=== PATIENT | male | born 1990 | race Caucasian/White ===

== ENCOUNTER → 2017-09-13 | Outpatient (CLI) | payer MEDICARE, OTHER ==
--- NOTE | 2017-09-13 16:01 | US ---
EXAMINATION TYPE: US liver DATE OF EXAM: 09/13/2017 COMPARISON: NONE CLINICAL HISTORY: 26-year-old male R94.5 Elevated Liver Enzymes. TECHNIQUE: Multiple sonographic images of the right upper quadrant are obtained. FINDINGS: [employer] NOTES: Difficult exam due to overlying bowel gas and patient body habitus Liver Length: 18.3 cm Gallbladder Wall: 0.2 cm CBD: 4.2 mm Right Kidney: 10.8 x 4.7 x 4.8 cm Pancreas: Only portions of the pancreatic neck and body are seen. Remainder suboptimally visualized d ue to shadowing from bowel gas. Liver: Mildly enlarged, coarsened appearance, echogenic, and attenuating. This secondarily limits as sessment for focal lesion. Gallbladder: wnl Evidence for sonographic Jiang's sign: No CBD: wnl as visualized, distal portion obscured by bowel gas Right Kidney: No hydronephrosis. IMPRESSION: Mild hepatomegaly and either moderate to marked hepatic steatosis or other nonspecific hepatocellular disease. Correlate with LFTs, lipid profile, and patient risk factors.
== END | disposition home or self-care (01) ==
LOC: RADUSWWP 15:09
PROVIDERS: ATTEND Family Medicine
DX: R16.0 Hepatomegaly, not elsewhere classified (principal)
CPT/HCPCS: 76705

== ENCOUNTER 2018-09-03 19:06 | Inpatient (IN) | payer MEDICARE, MEDICAID ==
--- NOTE | 2018-09-03 19:31 | ED ---
General Adult HPI - General Chief complaint: Psychiatric Symptoms Stated complaint: Suicidal Time Seen by Provider: 09/03/18 19:10 Source: patient, EMS, RN notes reviewed Mode of arrival: EMS Limitations: no limitations - History of Present Illness Initial comments: This is a 27-year-old male who presents emergency department stating that he is suicidal. Patient states he has been suicidal in the past in the past he has tried to cut his wrist. Patient states he took a couple pills today does know what they were or whose they were and then a little bit later he said he took a couple more than a couple. Patient is very unclear about what pills he took and how many he took. Patient did not tell nursing or the ambulance he took any pills at all. Patient is developmentally delayed. Patient has no physical complaints today. Patient denies any headache patient denies numbness weakness. Patient denies chest pain difficult breathing or shortness of breath. Patient denies any recent fever chills or cough per patient denies abdominal pain patient denies nausea vomiting diarrhea. - Related Data Allergies Allergy/AdvReac Type Severity Reaction Status Date / Time No Known Allergies Allergy Unverified 09/03/18 19:44 Review of Systems ROS Statement: Those systems with pertinent positive or pertinent negative responses have been documented in the HPI. ROS Other: All systems not noted in ROS Statement are negative. Past Medical History Past Medical History: No Reported History History of Any Multi-Drug Resistant Organisms: None Reported Past Surgical History: No Surgical Hx Reported Past Psychological History: Anxiety, Bipolar, Depression Smoking Status: Never smoker Past Alcohol Use History: None Reported Past Drug Use History: None Reported General Exam - General Exam Comments Initial Comments: GENERAL: Patient is well-developed and well-nourished. Patient is nontoxic and well- hydrated and is in no acute distress ENT: Neck is soft and supple. No significant lymphadenopathy is noted. Oropharynx is clear. Moist mucous membranes. Neck has full range of motion without eliciting any pain. EYES: The sclera were anicteric and conjunctiva were pink and moist. Extraocular movements were intact and pupils were equal round and reactive to light. Eyelids were unremarkable. PULMONARY: Unlabored respirations. Good breath sounds bilaterally. No audible rales rhonchi or wheezing was noted. CARDIOVASCULAR: There is a regular rate and rhythm without any murmurs gallops or rubs. ABDOMEN: Soft and nontender with normal bowel sounds. SKIN: Skin is clear with no lesions or rashes and otherwise unremarkable. NEUROLOGIC: Patient is alert and oriented 2. Cranial nerves II through XII are grossly intact. Motor and sensory are also intact. Normal speech, volume and content. Symmetrical smile. MUSCULOSKELETAL: Normal extremities with adequate strength and full range of motion. No lower extremity swelling or edema. No calf tenderness. LYMPHATICS: No significant lymphadenopathy is noted PSYCHIATRIC: Patient states he suicidal but also indicates that he would like not to live with his parents anymore and that may be the underlying problem. Limitations: no limitations Course Vital Signs 09/03/18 19:15 Temperature 98.4 F Pulse Rate 110 H Respiratory 18 Rate Blood Pressure 143/94 O2 Sat by Pulse 97 Oximetry Medical Decision Making - Medical Decision Making Dr. Solis will be taking over care of this patient at 9 PM - Lab Data Lab Results 09/03/18 Range/Units 19:57 Salicylates <1.0 mg/dL Acetaminophen <10.0 ug/mL Disposition Referrals: Tj Barrientos MD [Primary Care Provider] - 1-2 days
[2018-09-03 20:47] LABS: Acetaminophen <10.0 ug/mL; Salicylate <1.0 mg/dL
[2018-09-03 21:14] LABS: Amphetamine Screen,Urine Not Detected (NotDetected); Barbiturate Screen,Urine Not Detected (NotDetected); Benzodiazepines Screen,Urine Detected (NotDetected); Cocaine Screen,Urine Not Detected (NotDetected); Methadone Screen, Urine Not Detected (NotDetected); Opiate Screen,Urine Not Detected (NotDetected); Oxycodone Screen, Urine Not Detected (NotDetected); Phencyclidine Screen,Urine Not Detected (NotDetected); Tricyclic Antidepressant,Urine Detected (NotDetected); Urn Cannabinoid Scrn Not Detected (NotDetected)
[2018-09-04] MEDS ORDERED: ZIPRASIDONE 20 MG VIAL IM PRN (00:26)
[2018-09-04] MEDS ORDERED: ACETAMINOPHEN TAB 325 MG TAB PO PRN (00:26)
[2018-09-04] MEDS ORDERED: MAG HYDROX/AL HYDROX/SIMETH 30 ML CUP PO PRN (00:26)
[2018-09-04] MEDS ORDERED: MAGNESIUM HYDROXIDE 2,400 MG/10 ML CUP PO PRN (00:26)
[2018-09-04] MEDS ORDERED: LORazepam 2 MG/ML INJ IM PRN (00:30)
[2018-09-04] MEDS ORDERED: DIVALPROEX ER 500 MG TAB.ER.24H PO SCH (09:00)
[2018-09-04] MEDS ORDERED: FLUoxetine HCL 20 MG CAP PO SCH (09:00)
[2018-09-04] MEDS: ATORVASTATIN 20 MG TAB PO SCH (09:14)
[2018-09-04] MEDS: metFORMIN 500 MG TAB PO SCH (09:15)
[2018-09-04] MEDS: LISINOPRIL 10 MG TAB PO SCH (09:15)
[2018-09-04 11:48] LABS: Basophils % (A) 0 %; Eosinophils % (A) 0 %; HCT 49.7 % (39.0-53.0); Lymphocytes # (A) 2.3 k/uL (1.0-4.8); Lymphocytes % (A) 32 %; MCH 28.5 pg (25.0-35.0); MCHC 32.2 g/dL (31.0-37.0); MCV 88.5 fL (80.0-100.0); Mean Platelet Volume 6.3; Monocytes # (A) 0.7 k/uL (0-1.0); Monocytes % (A) 10 %; Neutrophils % (A) 55 %; Platelet Count 245 k/uL (150-450); RBC 5.61 m/uL (4.30-5.90); RDW 13.5 % (11.5-15.5); WBC 7.2 k/uL (3.8-10.6)
[2018-09-04 11:55] LABS: ALT 74 U/L (21-72); AST 58 U/L (17-59); Albumin 4.9 g/dL (3.5-5.0); Alkaline Phosphatase 48 U/L (38-126); Anion Gap 13 mmol/L; Bilirubin, Delta 0.3 mg/dL (0.0-0.2); Bilirubin,Unconjugated 0.9 mg/dL (0.0-1.1); Blood Urea Nitrogen 22 mg/dL (9-20); Calcium 10.5 mg/dL (8.4-10.2); Carbon Dioxide 23 mmol/L (22-30); Chloride 104 mmol/L (98-107); Cholesterol 132 mg/dL (<200); Glucose 95 mg/dL (74-99); HDL Cholesterol 34 mg/dL (40-60); LDL Cholesterol,Calculated 69 mg/dL (0-99); Potassium 4.7 mmol/L (3.5-5.1); Sodium 140 mmol/L (137-145); Total Bilirubin 1.2 mg/dL (0.2-1.3); Total Protein 8.6 g/dL (6.3-8.2); Triglycerides 144 mg/dL (<150)
--- NOTE | 2018-09-04 12:19 | P.HP ---
Psychiatric H&P - . H&P Date: 09/04/18 History & Physical: Allergies Allergy/AdvReac Type Severity Reaction Status Date / Time No Known Allergies Allergy Verified 09/04/18 09:11 Vital Signs Temp 97.0 F L 09/04/18 00:44 Pulse 116 H 09/04/18 10:43 Resp 20 09/04/18 10:43 BP 115/91 09/04/18 10:43 Pulse Ox 97 09/04/18 00:44 Intake & Output 09/03/18 09/04/18 09/04/18 18:59 06:59 18:59 Weight 130.181 kg Laboratory Last Values Salicylates <1.0 mg/dL 09/03/18 19:57 Urine Opiates Screen Not Detected (NotDetected) 09/03/18 20:30 Ur Oxycodone Screen Not Detected (NotDetected) 09/03/18 20:30 Urine Methadone Screen Not Detected (NotDetected) 09/03/18 20:30 Ur Propoxyphene Screen Not Detected (NotDetected) 09/03/18 20:30 Acetaminophen <10.0 ug/mL 09/03/18 19:57 Ur Barbiturates Screen Not Detected (NotDetected) 09/03/18 20:30 U Tricyclic Antidepress Detected (NotDetected) H 09/03/18 20:30 Ur Phencyclidine Scrn Not Detected (NotDetected) 09/03/18 20:30 Ur Amphetamines Screen Not Detected (NotDetected) 09/03/18 20:30 U Methamphetamines Scrn Not Detected (NotDetected) 09/03/18 20:30 U Benzodiazepines Scrn Detected (NotDetected) H 09/03/18 20:30 Urine Cocaine Screen Not Detected (NotDetected) 09/03/18 20:30 U Marijuana (THC) Screen Not Detected (NotDetected) 09/03/18 20:30 Assessment and Plan Assessment: This is a 27-year-old male who presents emergency department stating that he is suicidal. Patient states he has been suicidal in the past in the past he has tried to cut his wrist. Patient states he took a couple pills today does know what they were or whose they were and then a little bit later he said he took a couple more than a couple. Patient is very unclear about what pills he took and how many he took. Patient did not tell nursing or the ambulance he took any pills at all. Patient is developmentally delayed. Patient has no physical complaints today. Patient denies any headache patient denies numbness weakness. Patient denies chest pain difficult breathing or shortness of breath. Patient denies any recent fever chills or cough per patient denies abdominal pain patient denies nausea vomiting diarrhea. I'll feel safe from my father. I would harm myself again. I need more help. Social history: Lives with mom and dad and his sister in [facility]. Currently he is on so security disability and not working. Outpatient mental health at [facility] and has a casework manager David Hi. Dr. Taylor is his psychiatrist. - Related Data Allergies Allergy/AdvReac Type Severity Reaction Status Date / Time No Known Allergies Allergy Unverified 09/03/18 19:44 Past Medical History Past Medical History: No Reported History History of Any Multi-Drug Resistant Organisms: None Reported Past Surgical History: No Surgical Hx Reported Past Psychological History: Anxiety, Bipolar, Depression Smoking Status: Never smoker Past Alcohol Use History: None Reported Past Drug Use History: None Reported His outpatient medication: Seroquel 100 mg at bedtime, Prozac 40 mg a day and Depakote 250 twice a day Musculoskeletal Examination - Abnormal/Involuntary Movements: [none Strength: [greater than antigravity (greater than/equal to 3/5) in all extremities,:] Muscle Tone: [ dystonia, ] Gait: [grossly normal Station: [grossly normal Mental Status Examination - General Appearance: [casual, bizarre, appears stated age Speech/Language: [ slow, slurred, mumbling, hesitant, halting, monotone, soft] Attitude/Behavior: [ guarded, irritable, withdrawn, indifferent] Mood: [depressed, anxious, fearful, hopelessness] Affect: [ flat, incongruent, blunted constricted] Orientation: [time, person, place situation] Thought Content: [wnl Risk Factors: [He is suicidal (ideations, plan), and/or Homicidal (ideations, plan), other] Perception: [wnl, hallucinations (auditory, visual, he hears and sees his grandmother Thought Processes: [ concrete, circumstantial, tangential] Concentration/Attention Span: [impaired] [Per observation and interview with the patient] Recent Memory: [ impaired] [0 out of 3 in 3 minutes] Remote Memory: [impaired] [past events, as related history] Intelligence: [below average [based on history, based on vocabulary, syntax, grammar, and content] Judgement: [poor] [per patient's behavior/history of present illness] Insight: [poor] [understanding severity of illness/history of present illness] Admitting Diagnosis: [Bipolar affective disorder with psychosis and suicidal ideation] Patient Strengths - Able to vocalize needs: [x] Motivation, determination, readiness for change: x] Resources - social, interpersonal, monetary: [x] Patient Limitations: [medication, non-compliance, pathological/unsupported environment, Initial Plan of Care: [He has a formal voluntary on the psychiatric unit and will be placed on 15 minute checks during his stay on the unit. He'll be evaluated by medicine, psychiatry, social work, nursing, and recreational therapy. He'll be integrated into a holguin and milieu therapeutic environment whereby he'll have to participate in groups and up for all 3 meals and no sleeping during the daytime. He will be evaluated and a multi specialty team meeting every day. Placement will be a major factor in this hospitalization.] Estimated Length of Stay: [5-7 days] Initial Discharge Plan: [home, [facility], referred to therapist Prognosis: [ guarded] Justification for Inpatient Hospitalization - [Hallucinations, delusions, agitation, anxiety, depression resulting in significant loss of functioning.] [Dangerous to self, others, or property with need for controlled environment.] [Emotional or behavioral conditions and complications requiring 24 hour medical and nursing care.] [Need for special drug therapy, or other therapeutic program requiring continuous hospitalization.] [Failure of social or occupational functioning.] [Inability to meet basic life and health needs.] Plan: He will be taken off his Prozac, Seroquel and since he has a low Depakote level will be placed on thousand milligrams extended release with the addition of Invega at bedtime 3 mg and Mirapex 0.5 mg for his restless leg and sleep disturbance. Discharge planning should begin immediately and contact with the family for further clarification. This is his first hospitalization at [facility] Time with Patient: Greater than 30
[2018-09-04 20:55] LABS: Hemoglobin A1C 6.3 % (4.0-6.0)
[2018-09-04] MEDS ORDERED: PRAMIPEXOLE 0.5 MG TAB PO SCH (21:00)
[2018-09-04] MEDS ORDERED: QUEtiapine 100 MG TAB PO SCH (21:00)
[2018-09-04] MEDS ORDERED: PALIPERIDONE 3 MG TAB.ER.24 PO SCH (21:00)
[2018-09-04] MEDS: DIVALPROEX ER 500 MG TAB.ER.24H PO SCH (21:13)
[2018-09-04] MEDS ORDERED: WATER FOR INJECTION, STERILE 10 ML IV ONE (22:46)
[2018-09-04] MEDS ORDERED: ZIPRASIDONE 20 MG VIAL IM ONE (22:46)
[2018-09-05] MEDS: metFORMIN 500 MG TAB PO SCH (08:03)
[2018-09-05] MEDS: ATORVASTATIN 20 MG TAB PO SCH (08:03)
[2018-09-05] MEDS: LISINOPRIL 10 MG TAB PO SCH (08:03)
--- NOTE | 2018-09-05 09:46 | CONS ---
CONSULTATION CHIEF COMPLAINT: A 27-year-old white male with psychiatric symptoms, suicidal. States he is having difficulties with his family. Fighting with his parents and wants a different place to live. He is having no chest pain, shortness of breath. He does not feel happy at home and wants a new place to live due to fighting with his family. ALLERGIES: No known drug allergies. PAST MEDICAL HISTORY: He has history of anxiety, bipolar, depression, diabetes, hypertension, obesity. REVIEW OF SYSTEMS: Fourteen point review of systems negative except for mentioned in HPI. PHYSICAL EXAMINATION: CARDIOVASCULAR: S1, S2. LUNGS: Clear. GI soft. Hematology negative Homans. Psych fair mood and affect. NEUROLOGIC: Alert and oriented x3. Temp 98.4, pulse is 110. Respiratory 16 to 18, blood pressure 143/94, O2 97. PSYCH: Fair mood and affect. LABORATORY DATA: Labs as mentioned above. Please see further orders. He needs a social situation fix with foot worker to find a new place to live where he is not unhappy and from medical standpoint we can treat his psychiatric illness. MMODL / IJN: [id number] /
--- NOTE | 2018-09-05 12:09 | P.PN ---
Subjective Progress Note Date: 09/05/18 Principal diagnosis: Bipolar affective disorder with psychosis and suicidal ideation] I am sad today. I had a disagreement with another client and we apologized. Currently not SI/HI Objective - Vital Signs Vital signs: Vital Signs Temp 97.0 F L 09/04/18 00:44 Pulse 116 H 09/04/18 10:43 Resp 18 09/05/18 08:11 BP 120/75 09/05/18 08:11 Pulse Ox 97 09/04/18 00:44 - Labs CBC & Chem 7: 09/04/18 11:15 09/04/18 11:15 Labs: Abnormal Lab Results - Last 24 Hours (Table) 09/04/18 09/04/18 Range/Units 11:15 11:15 BUN 22 H (9-20) mg/dL Hemoglobin A1c 6.3 H (4.0-6.0) % Calcium 10.5 H (8.4-10.2) mg/dL Delta Bilirubin 0.3 H (0.0-0.2) mg/dL ALT 74 H (21-72) U/L Total Protein 8.6 H (6.3-8.2) g/dL HDL Cholesterol 34 L (40-60) mg/dL Assessment and Plan Assessment: This is a 27-year-old male who presents emergency department stating that he is suicidal. Patient states he has been suicidal in the past in the past he has tried to cut his wrist. Patient states he took a couple pills today does know what they were or whose they were and then a little bit later he said he took a couple more than a couple. Patient is very unclear about what pills he took and how many he took. Patient did not tell nursing or the ambulance he took any pills at all. Patient is developmentally delayed. Patient has no physical complaints today. Patient denies any headache patient denies numbness weakness. Patient denies chest pain difficult breathing or shortness of breath. Patient denies any recent fever chills or cough per patient denies abdominal pain patient denies nausea vomiting diarrhea. I'll feel safe from my father. I would harm myself again. I need more help. Social history: Lives with mom and dad and his sister in [facility]. Currently he is on social security disability and not working. Outpatient mental health at [facility] and has a case technician David Hi. Dr. Taylor is his psychiatrist. - Related Data Allergies Allergy/AdvReac Type Severity Reaction Status Date / Time No Known Allergies Allergy Unverified 09/03/18 19:44 Past Medical History Past Medical History: No Reported History History of Any Multi-Drug Resistant Organisms: None Reported Past Surgical History: No Surgical Hx Reported Past Psychological History: Anxiety, Bipolar, Depression Smoking Status: Never smoker Past Alcohol Use History: None Reported Past Drug Use History: None Reported His outpatient medication: Seroquel 100 mg at bedtime, Prozac 40 mg a day and Depakote 250 twice a day Musculoskeletal Examination - Abnormal/Involuntary Movements: [none Strength: [greater than antigravity (greater than/equal to 3/5) in all extremities,:] Muscle Tone: [ dystonia, ] Gait: [grossly normal Station: [grossly normal Mental Status Examination - General Appearance: [casual, bizarre, appears stated age Speech/Language: [ slow, slurred, mumbling, hesitant, halting, monotone, soft] Attitude/Behavior: [ guarded, irritable, withdrawn, indifferent] Mood: [depressed, anxious, fearful, hopelessness] Affect: [ flat, incongruent, blunted constricted] Orientation: [time, person, place situation] Thought Content: [wnl Risk Factors: [He is suicidal (ideations, plan), and/or Homicidal (ideations, plan), other] Perception: [wnl, hallucinations (auditory, visual, he hears and sees his grandmother Thought Processes: [ concrete, circumstantial, tangential] Concentration/Attention Span: [impaired] [Per observation and interview with the patient] Recent Memory: [ impaired] [0 out of 3 in 3 minutes] Remote Memory: [impaired] [past events, as related history] Intelligence: [below average [based on history, based on vocabulary, syntax, grammar, and content] Judgement: [poor] [per patient's behavior/history of present illness] Insight: [poor] [understanding severity of illness/history of present illness] Admitting Diagnosis: [Bipolar affective disorder with psychosis and suicidal ideation] Patient Strengths - Able to vocalize needs: [x] Motivation, determination, readiness for change: x] Resources - social, interpersonal, monetary: [x] Patient Limitations: [medication, non-compliance, pathological/unsupported environment, Initial Plan of Care: [He has a formal voluntary on the psychiatric unit and will be placed on 15 minute checks during his stay on the unit. He'll be evaluated by medicine, psychiatry, social work, nursing, and recreational therapy. He'll be integrated into a holguin and milieu therapeutic environment whereby he'll have to participate in groups and up for all 3 meals and no sleeping during the daytime. He will be evaluated and a multi specialty team meeting every day. Placement will be a major factor in this hospitalization.] Estimated Length of Stay: [3 days] Initial Discharge Plan: [[place], referred to therapist Prognosis: [ guarded] Justification for Inpatient Hospitalization - [Hallucinations, delusions, agitation, anxiety, depression resulting in significant loss of functioning.] [Dangerous to self, others, or property with need for controlled environment.] [Emotional or behavioral conditions and complications requiring 24 hour medical and nursing care.] [Need for special drug therapy, or other therapeutic program requiring continuous hospitalization.] [Failure of social or occupational functioning.] [Inability to meet basic life and health needs.] (1) Bipolar affective disorder, current episode manic with psychotic symptoms Current Visit: Yes Status: Acute Priority: High Code(s): F31.2 - BIPOLAR DISORD, CRNT EPISODE MANIC SEVERE W PSYCH FEATURES SNOMED Code(s): 293557629 Plan: He will be taken off his Prozac, Seroquel and since he has a low Depakote level will be placed on thousand milligrams extended release with the addition of Invega at bedtime 6 mg and Mirapex 1 mg for his restless leg and sleep disturbance. Depakote level to be drawn today. Discharge planning should begin immediately and contact with the family for further clarification. This is his first hospitalization at [facility] Time with Patient: Less than 30
[2018-09-05] MEDS: LORazepam 1 MG TAB PO PRN ×2 (12:46→20:10)
[2018-09-05] MEDS ORDERED: PALIPERIDONE 3 MG TAB.ER.24 PO STA (13:32)
[2018-09-05] MEDS: PALIPERIDONE 6 MG TAB.ER.24 PO SCH (20:08)
[2018-09-05] MEDS: DIVALPROEX ER 500 MG TAB.ER.24H PO SCH (20:08)
[2018-09-05] MEDS ORDERED: HALOPERIDOL LACTATE 5 MG/ML 1 ML VIAL IM ONE (20:16)
[2018-09-05] MEDS ORDERED: diphenhydrAMINE 50 MG/ML 1 ML VIAL IM ONE (20:20)
[2018-09-05] MEDS ORDERED: PRAMIPEXOLE 1 MG TAB PO SCH (21:00)
[2018-09-06] MEDS: ATORVASTATIN 20 MG TAB PO SCH (09:07)
[2018-09-06] MEDS: LISINOPRIL 10 MG TAB PO SCH (09:07)
[2018-09-06] MEDS: metFORMIN 500 MG TAB PO SCH (09:07)
--- NOTE | 2018-09-06 11:40 | P.PN ---
Subjective Progress Note Date: 09/06/18 Principal diagnosis: Bipolar affective disorder with psychosis and suicidal ideation] I am sad today. I had a disagreement with another client and we apologized. Currently not SI/HI Objective - Vital Signs Vital signs: Vital Signs Temp 97.0 F L 09/04/18 00:44 Pulse 112 H 09/06/18 09:08 Resp 18 09/05/18 08:11 BP 140/89 09/06/18 09:08 Pulse Ox 97 09/04/18 00:44 - Labs CBC & Chem 7: 09/04/18 11:15 09/04/18 11:15 Assessment and Plan Assessment: This is a 27-year-old male who presents emergency department stating that he is suicidal. Patient states he has been suicidal in the past in the past he has tried to cut his wrist. Patient states he took a couple pills today does know what they were or whose they were and then a little bit later he said he took a couple more than a couple. Patient is very unclear about what pills he took and how many he took. Patient did not tell nursing or the ambulance he took any pills at all. Patient is developmentally delayed. Patient has no physical complaints today. Patient denies any headache patient denies numbness weakness. Patient denies chest pain difficult breathing or shortness of breath. Patient denies any recent fever chills or cough per patient denies abdominal pain patient denies nausea vomiting diarrhea. I'll feel safe from my father. I would harm myself again. I need more help. Social history: Lives with mom and dad and his sister in [facility]. Currently he is on social security disability and not working. Outpatient mental health at [facility] and has a case mgr David Hi. Dr. Taylor is his psychiatrist. - Related Data Allergies Allergy/AdvReac Type Severity Reaction Status Date / Time No Known Allergies Allergy Unverified 09/03/18 19:44 Past Medical History Past Medical History: No Reported History History of Any Multi-Drug Resistant Organisms: None Reported Past Surgical History: No Surgical Hx Reported Past Psychological History: Anxiety, Bipolar, Depression Smoking Status: Never smoker Past Alcohol Use History: None Reported Past Drug Use History: None Reported His outpatient medication: Seroquel 100 mg at bedtime, Prozac 40 mg a day and Depakote 250 twice a day Musculoskeletal Examination - Abnormal/Involuntary Movements: [none Strength: [greater than antigravity (greater than/equal to 3/5) in all extremities,:] Muscle Tone: [ dystonia, ] Gait: [grossly normal Station: [grossly normal Mental Status Examination - General Appearance: [casual, bizarre, appears stated age Speech/Language: [ slow, slurred, mumbling, hesitant, halting, monotone, soft] Attitude/Behavior: [ guarded, irritable, withdrawn, indifferent] Mood: [depressed, anxious, fearful, hopelessness] Affect: [ flat, incongruent, blunted constricted] Orientation: [time, person, place situation] Thought Content: [wnl Risk Factors: [He is suicidal (ideations, plan), and/or Homicidal (ideations, plan), other] Perception: [wnl, hallucinations (auditory, visual, he hears and sees his grandmother Thought Processes: [ concrete, circumstantial, tangential] Concentration/Attention Span: [impaired] [Per observation and interview with the patient] Recent Memory: [ impaired] [0 out of 3 in 3 minutes] Remote Memory: [impaired] [past events, as related history] Intelligence: [below average [based on history, based on vocabulary, syntax, grammar, and content] Judgement: [poor] [per patient's behavior/history of present illness] Insight: [poor] [understanding severity of illness/history of present illness] Admitting Diagnosis: [Bipolar affective disorder with psychosis and suicidal ideation] Patient Strengths - Able to vocalize needs: [x] Motivation, determination, readiness for change: x] Resources - social, interpersonal, monetary: [x] Patient Limitations: [medication, non-compliance, pathological/unsupported environment, Initial Plan of Care: [He has a formal voluntary on the psychiatric unit and will be placed on 15 minute checks during his stay on the unit. He'll be evaluated by medicine, psychiatry, social work, nursing, and recreational therapy. He'll be integrated into a holgu[place] and milieu therapeutic environment whereby he'll have to participate in groups and up for all 3 meals and no sleeping during the daytime. He will be evaluated and a multi specialty team meeting every day. Placement will be a major factor in this hospitalization.] Estimated Length of Stay: [3 days] Initial Discharge Plan: [home, [facility], referred to therapist Prognosis: [ guarded] Justification for Inpatient Hospitalization - [Hallucinations, delusions, agitation, anxiety, depression resulting in significant loss of functioning.] [Dangerous to self, others, or property with need for controlled environment.] [Emotional or behavioral conditions and complications requiring 24 hour medical and nursing care.] [Need for special drug therapy, or other therapeutic program requiring continuous hospitalization.] [Failure of social or occupational functioning.] [Inability to meet basic life and health needs.] (1) Bipolar affective disorder, current episode manic with psychotic symptoms Current Visit: Yes Status: Acute Priority: High Code(s): F31.2 - BIPOLAR DISORD, CRNT EPISODE MANIC SEVERE W PSYCH FEATURES SNOMED Code(s): 822988811 Plan: He will be taken off his Prozac, Seroquel and since he has a low Depakote level will be placed on thousand milligrams extended release with the addition of Invega at bedtime 6 mg and Mirapex 1 mg for his restless leg and sleep disturbance. Depakote level to be drawn today. Discharge planning should begin immediately and contact with the family for further clarification. This is his first hospitalization at [facility] Time with Patient: Less than 30
[2018-09-06] MEDS: LORazepam 1 MG TAB PO PRN (17:22)
[2018-09-06] MEDS: DIVALPROEX ER 500 MG TAB.ER.24H PO SCH (20:36)
[2018-09-06] MEDS: PALIPERIDONE 6 MG TAB.ER.24 PO SCH (20:36)
[2018-09-06] MEDS: PRAMIPEXOLE 0.5 MG TAB PO SCH (21:54)
[2018-09-07 06:48] VITALS: RESP 16
[2018-09-07] MEDS: metFORMIN 500 MG TAB PO SCH (08:35)
[2018-09-07] MEDS: LISINOPRIL 10 MG TAB PO SCH (08:35)
[2018-09-07] MEDS: ATORVASTATIN 20 MG TAB PO SCH (08:35)
--- NOTE | 2018-09-07 11:31 | P.PN ---
Subjective Progress Note Date: 09/07/18 Principal diagnosis: Bipolar affective disorder with psychosis and resolved suicidal ideation] I am sad today. I am less depressed and sad depressed Currently not SI/HI Chart reviewed and discussed his behavior with us. Objective - Vital Signs Vital signs: Vital Signs Temp 97.7 F 09/07/18 06:34 Pulse 102 H 09/07/18 06:34 Resp 16 09/07/18 06:34 BP 131/87 09/07/18 06:34 Pulse Ox 97 09/04/18 00:44 - Labs CBC & Chem 7: 09/04/18 11:15 09/04/18 11:15 Assessment and Plan Assessment: Musculoskeletal Examination - Abnormal/Involuntary Movements: [none Strength: [greater than antigravity (greater than/equal to 3/5) in all extremities,:] Muscle Tone: [ dystonia, ] Gait: [grossly normal Station: [grossly normal Mental Status Examination - General Appearance: [casual, bizarre, appears stated age Speech/Language: [ slow, slurred, mumbling, hesitant, halting, monotone, soft] Attitude/Behavior: [ guarded, irritable, withdrawn, indifferent] Mood: [depressed, anxious, fearful, hopelessness] Affect: [ flat, incongruent, blunted constricted] Orientation: [time, person, place situation] Thought Content: [wnl Risk Factors: [He is suicidal (ideations, plan), and/or Homicidal (ideations, plan), other] Perception: [wnl, hallucinations (auditory, visual, he hears and sees his grandmother Thought Processes: [ concrete, circumstantial, tangential] Concentration/Attention Span: [impaired] [Per observation and interview with the patient] Recent Memory: [ impaired] [0 out of 3 in 3 minutes] Remote Memory: [impaired] [past events, as related history] Intelligence: [below average [based on history, based on vocabulary, syntax, grammar, and content] Judgement: [poor] [per patient's behavior/history of present illness] Insight: [poor] [understanding severity of illness/history of present illness] Admitting Diagnosis: [Bipolar affective disorder with psychosis and suicidal ideation] Patient Strengths - Able to vocalize needs: [x] Motivation, determination, readiness for change: x] Resources - social, interpersonal, monetary: [x] Patient Limitations: [medication, non-compliance, pathological/unsupported environment, Initial Plan of Care: [He has a formal voluntary on the psychiatric unit and will be placed on 15 minute checks during his stay on the unit. He'll be evaluated by medicine, psychiatry, social work, nursing, and recreational therapy. He'll be integrated into a holguin and milieu therapeutic environment whereby he'll have to participate in groups and up for all 3 meals and no sleeping during the daytime. He will be evaluated and a multi specialty team meeting every day. Placement will be a major factor in this hospitalization.] Estimated Length of Stay: [1 days] Initial Discharge Plan: [home, [facility], referred to therapist Prognosis: [ guarded] Justification for Inpatient Hospitalization - [Hallucinations, delusions, agitation, anxiety, depression resulting in significant loss of functioning.] [Dangerous to self, others, or property with need for controlled environment.] [Emotional or behavioral conditions and complications requiring 24 hour medical and nursing care.] [Need for special drug therapy, or other therapeutic program requiring continuous hospitalization.] [Failure of social or occupational functioning.] [Inability to meet basic life and health needs.] (1) Bipolar affective disorder, current episode manic with psychotic symptoms Current Visit: Yes Status: Acute Priority: Medium Code(s): F31.2 - BIPOLAR DISORD, CRNT EPISODE MANIC SEVERE W PSYCH FEATURES SNOMED Code(s): 578820828 Plan: He will be taken off his Prozac, Seroquel and since he has a low Depakote level will be placed on thousand milligrams extended release with the addition of Invega at bedtime 6 mg and Mirapex 1 mg for his restless leg and sleep disturbance. Depakote level to be drawn today. Addition of 250 mg Depakote ER to his existing 1000 mg. Discharge planning should begin immediately and contact with the family for further clarification. This is his first hospitalization at [facility] Time with Patient: Less than 30
[2018-09-07] MEDS: PALIPERIDONE 6 MG TAB.ER.24 PO SCH (20:32)
[2018-09-07] MEDS: PRAMIPEXOLE 0.5 MG TAB PO SCH (20:32)
[2018-09-07] MEDS: DIVALPROEX ER 500 MG TAB.ER.24H PO SCH (20:32)
[2018-09-07] MEDS: LORazepam 1 MG TAB PO PRN (21:26)
[2018-09-08 07:11] VITALS: BP 136/81; PULSE 100; TEMP 97.6
[2018-09-08] MEDS: ATORVASTATIN 20 MG TAB PO SCH (08:54)
[2018-09-08] MEDS: LISINOPRIL 10 MG TAB PO SCH (08:54)
[2018-09-08] MEDS: metFORMIN 500 MG TAB PO SCH (08:55)
[2018-09-08] MEDS ORDERED: DIVALPROEX ER 250 MG TAB.ER.24H PO SCH (09:00)
--- NOTE | 2018-09-08 11:21 | P.DS ---
Providers Date of admission: 09/03/18 23:56 Expected date of discharge: 09/08/18 Attending physician: Yong Darden DO Consults: 09/04/18 00:26 Consult Physician Routine Consulting Provider: Tj Barrientos Consult Reason/Comments: For H & P for Medical Follow Up. Do you want consulting provider notified?: Yes, Notify in am Primary care physician: Tj Barrientos - Discharge Diagnosis(es) (1) Bipolar affective disorder, current episode manic with psychotic symptoms This is a 27-year-old male who presents emergency department stating that he is suicidal. Patient states he has been suicidal in the past in the past he has tried to cut his wrist. Patient states he took a couple pills today does know what they were or whose they were and then a little bit later he said he took a couple more than a couple. Patient is very unclear about what pills he took and how many he took. Patient did not tell nursing or the ambulance he took any pills at all. Patient is developmentally delayed. Patient has no physical complaints today. Patient denies any headache patient denies numbness weakness. Patient denies chest pain difficult breathing or shortness of breath. Patient denies any recent fever chills or cough per patient denies abdominal pain patient denies nausea vomiting diarrhea. I'll feel safe from my father. I would harm myself again. I need more help. Social history: Lives with mom and dad and his sister in [facility]. Currently he is on so security disability and not working. Outpatient mental health at [facility] and has a complex case manager David Hi. Dr. Taylor is his psychiatrist. Current Visit: Yes Status: Acute Priority: Medium Hospital Course: Johnathan was admitted he has guardianship due to his abnormal behavior psychosis and thoughts of killing himself. He was put on 15 minute watch his is here attended groups and was appropriate with nursing staff and interacted well with other peers. I switched his antipsychotic from Seroquel to Invega and titrated to 6 mg. One may want to titrated to 9 mg and then use Invega long- acting injection. His Depakote level was low when he first came in therefore high titrated his dose to a 1250 mg extended release a day and has blood levels are within normal range. I continued his Prozac and his mood became stable with the above medications. The guardian wants him to return home which she'll do later on today at 5 PM on 10/08/2018. The patient presents alert, pleasant, and cooperative. There calmly seated without any agitated behavior. [He] reports that [his] mood is good. Affect is congruent and euthymic. [He] deny having any suicidal or homicidal ideation intent or plan. [He] denies any auditory or visual hallucinations. There is no evidence of any delusional thought content. [His] thought process is linear and goal-directed. [His] speech is fluent and nonpressured. [His] memory and concentration is grossly intact for the purposes of this session, considering he has a learning disorder which is now stabilized with medications and his memory has always been questionable.. Patient Condition at Discharge: Stable Plan - Discharge Summary New Discharge Prescriptions: New Divalproex ER [Depakote ER] 1,000 mg PO 2100 30 Days #30 tab.er.24h Divalproex ER [Depakote ER] 250 mg PO DAILY 30 Days #30 tab.er.24h metFORMIN HCL [Glucophage] 500 mg PO W/BRKFST tab Paliperidone [Invega] 6 mg PO 2100 #30 tab.er.24 Pramipexole [Mirapex] 1 mg PO 2100 30 Days #30 tab Continue Lisinopril [Zestril] 10 mg PO DAILY Atorvastatin [Lipitor] 20 mg PO DAILY FLUoxetine HCL 40 mg PO DAILY #30 capsule Discontinued QUEtiapine [SEROquel] 100 mg PO DAILY@1200 Divalproex Sodium [Depakote] 500 mg PO TID QUEtiapine [SEROquel] 400 mg PO BID ALPRAZolam [Xanax] 0.5 mg PO BID PRN PRN Reason: Anxiety Discharge Medication List Atorvastatin [Lipitor] 20 mg PO DAILY 09/04/18 [History] Lisinopril [Zestril] 10 mg PO DAILY 09/04/18 [History] Divalproex ER [Depakote ER] 1,000 mg PO 2100 30 Days #30 tab.er.24h 09/08/18 [Rx ] Divalproex ER [Depakote ER] 250 mg PO DAILY 30 Days #30 tab.er.24h 09/08/18 [Rx] FLUoxetine HCL 40 mg PO DAILY #30 capsule 09/08/18 [Rx] Paliperidone [Invega] 6 mg PO 2100 #30 tab.er.24 09/08/18 [Rx] Pramipexole [Mirapex] 1 mg PO 2100 30 Days #30 tab 09/08/18 [Rx] metFORMIN HCL [Glucophage] 500 mg PO W/BRKFST tab 09/08/18 [Rx] Follow up Appointment(s)/Referral(s): [facility] [Outside] - 09/10/18 10:00 am (09/10 @ 10:00 with David Tapia 09/24 @ 09:30 am med review with Dr Taylor) Tj Barrientos MD [Primary Care Provider] - 1-2 days Discharge Disposition: HOME SELF-CARE
== END 2018-09-08 17:11 | disposition home or self-care (01) | DRG 885 ==
LOC: EEVIPCON 19:06 → EC 19:06 → 3MHU 23:56
PROVIDERS: ADMIT Psychiatry & Neurology Psychiatry; ATTEND Psychiatry & Neurology Psychiatry
DX: F31.2 Bipolar disorder, current episode manic severe with psychotic features (principal); R45.851 Suicidal ideations; E11.9 Type 2 diabetes mellitus without complications; F41.9 Anxiety disorder, unspecified; G24.9 Dystonia, unspecified; G25.81 Restless legs syndrome; I10 Essential (primary) hypertension; Z91.19 Patient's noncompliance with other medical treatment and regimen; R62.50 Unspecified lack of expected normal physiological development in childhood; Z79.899 Other long term (current) drug therapy
CPT/HCPCS: 36415; 80053; 80061; 80164; 80306; 82075; 82248; 83036; 83520; 84443; 85025; 99285

== ENCOUNTER 2018-10-01 18:42 | Emergency (ER) | payer MEDICARE, OTHER ==
--- NOTE | 2018-10-01 18:50 | ED ---
Psych HPI - General Stated Complaint: suicidal Time Seen by Provider: 10/01/18 18:50 Source: RN notes reviewed, old records reviewed - History of Present Illness Initial Comments: This is a 28-year-old male to the ER for evaluation. Patient resents for psychiatric evaluation. Patient has multiple recent admissions here at this hospital for psychiatric evaluation. Patient states he does have increased depression. No recent travel history patient denies drugs rel call no recent medication changes. Patient states he keeps fighting with his mom and is driving him to depression and suicidal thoughts MD Complaint: suicidal ideation, feels depressed -: unknown Associated Psychiatric Symptoms: depression, suicidal ideation History of same: Yes Quality: changing over time Improves With: none Worsens With: none Context: not taking psychiatric medications, significant life stressor Associated Symptoms: denies other symptoms Treatments Prior to Arrival: none If Self Harm: admits thoughts of self harm - Related Data Home Medications Medication Instructions Recorded Confirmed Atorvastatin [Lipitor] 20 mg PO DAILY 09/04/18 09/04/18 Lisinopril [Zestril] 10 mg PO DAILY 09/04/18 09/04/18 Previous Rx's Medication Instructions Recorded Divalproex ER [Depakote ER] 1,000 mg PO 2100 30 Days #30 09/08/18 tab.er.24h Divalproex ER [Depakote ER] 250 mg PO DAILY 30 Days #30 09/08/18 tab.er.24h FLUoxetine HCL 40 mg PO DAILY #30 capsule 09/08/18 Paliperidone [Invega] 6 mg PO 2100 #30 tab.er.24 09/08/18 Pramipexole [Mirapex] 1 mg PO 2100 30 Days #30 tab 09/08/18 metFORMIN HCL [Glucophage] 500 mg PO W/BRKFST tab 09/08/18 Allergies Allergy/AdvReac Type Severity Reaction Status Date / Time No Known Allergies Allergy Verified 10/01/18 19:09 Review of Systems ROS Statement: Those systems with pertinent positive or pertinent negative responses have been documented in the HPI. ROS Other: All systems not noted in ROS Statement are negative. Past Medical History Past Medical History: No Reported History History of Any Multi-Drug Resistant Organisms: None Reported Past Surgical History: No Surgical Hx Reported Past Psychological History: Anxiety, Bipolar, Depression Smoking Status: Never smoker Past Alcohol Use History: None Reported Past Drug Use History: None Reported General Exam General appearance: alert, in no apparent distress Head exam: Present: atraumatic, normocephalic, normal inspection Eye exam: Present: normal appearance, PERRL, EOMI. Absent: scleral icterus, conjunctival injection, periorbital swelling ENT exam: Present: normal exam, mucous membranes moist Neck exam: Present: normal inspection. Absent: tenderness, meningismus, lymphadenopathy Respiratory exam: Present: normal lung sounds bilaterally. Absent: respiratory distress, wheezes, rales, rhonchi, stridor Cardiovascular Exam: Present: regular rate, normal rhythm, normal heart sounds. Absent: systolic murmur, diastolic murmur, rubs, gallop, clicks GI/Abdominal exam: Present: soft, normal bowel sounds. Absent: distended, tenderness, guarding, rebound, rigid Extremities exam: Present: normal inspection, full ROM, normal capillary refill. Absent: tenderness, pedal edema, joint swelling, calf tenderness Back exam: Present: normal inspection Neurological exam: Present: alert, oriented X3, CN II-XII intact Psychiatric exam: Present: normal affect, normal mood Skin exam: Present: warm, dry, intact, normal color. Absent: rash Course Vital Signs 10/01/18 10/01/18 18:50 20:30 Temperature 99.4 F Pulse Rate 96 93 Respiratory 16 18 Rate Blood Pressure 146/108 149/106 O2 Sat by Pulse 95 98 Oximetry - Reevaluation(s) Reevaluation #1: 10/01/18 22:00 patient is medically clesar for psychiatric evaluation Medical Decision Making - Medical Decision Making 28 male seen evaluated with psychiatry, patient deemed stable for discharge home. Patient agrees with plan, can be discharged - Lab Data Lab Results 10/01/18 Range/Units 19:03 Urine Opiates Screen Not Detected (NotDetected) Ur Oxycodone Screen Not Detected (NotDetected) Urine Methadone Screen Not Detected (NotDetected) Ur Propoxyphene Screen Not Detected (NotDetected) Ur Barbiturates Screen Not Detected (NotDetected) U Tricyclic Antidepress Not Detected (NotDetected) Ur Phencyclidine Scrn Not Detected (NotDetected) Ur Amphetamines Screen Not Detected (NotDetected) U Methamphetamines Scrn Not Detected (NotDetected) U Benzodiazepines Scrn Detected H (NotDetected) Urine Cocaine Screen Not Detected (NotDetected) U Marijuana (THC) Screen Not Detected (NotDetected) Disposition Clinical Impression: Bipolar affective disorder, current episode manic with psychotic symptoms Disposition: HOME SELF-CARE Condition: Good Instructions: Bipolar Disorder (ED) Is patient prescribed a controlled substance at d/c from ED?: No Referrals: Tj Barrientos MD [Primary Care Provider] - 1-2 days
[2018-10-01 19:05] VITALS: TEMP 99.4
[2018-10-01 19:32] LABS: Cocaine Screen,Urine Not Detected (NotDetected); Phencyclidine Screen,Urine Not Detected (NotDetected); Urn Cannabinoid Scrn Not Detected (NotDetected)
[2018-10-01 19:33] LABS: Amphetamine Screen,Urine Not Detected (NotDetected); Barbiturate Screen,Urine Not Detected (NotDetected); Benzodiazepines Screen,Urine Detected (NotDetected); Methadone Screen, Urine Not Detected (NotDetected); Opiate Screen,Urine Not Detected (NotDetected); Oxycodone Screen, Urine Not Detected (NotDetected); Tricyclic Antidepressant,Urine Not Detected (NotDetected)
[2018-10-01 20:48] VITALS: BP 149/106; PULSE 93; RESP 18
== END 2018-10-01 22:25 | disposition home or self-care (01) ==
LOC: EC 18:42 → EEVIPCON 18:42 → EC 22:25
DX: F31.2 Bipolar disorder, current episode manic severe with psychotic features (principal); Z79.899 Other long term (current) drug therapy
CPT/HCPCS: 80306; 99285

== ENCOUNTER 2018-10-03 22:25 | Emergency (ER) | payer MEDICARE, OTHER ==
--- NOTE | 2018-10-04 00:26 | ED ---
Abdominal Pain HPI - General Chief Complaint: Abdominal Pain Stated Complaint: doesn't feel well. Time Seen by Provider: 10/03/18 22:42 Source: patient Mode of arrival: ambulatory Limitations: no limitations - History of Present Illness Initial Comments: This is a 28-year-old male to the ER for evaluation. Presents today for evaluation regards to scrotal pain abdominal pain. Patient also admits to history of psychiatric illness and saying that he is homeless, he states he was kicked out of his senior care today because he is not have his medications. Otherwise patient has no complaints. Patient was seen in ER 2 days ago and was placed in the [place] is currently staying. Patient states she is out of place the mar[facility] Complaint: abdominal pain -: days(s) Location: suprapubic Radiation: suprapubic Migration to: no migration Severity: mild Severity scale (1-10): 1 Consistency: constant Improves With: nothing Worsens With: nothing Associated Symptoms: denies other symptoms - Related Data Home Medications Medication Instructions Recorded Confirmed Atorvastatin [Lipitor] 20 mg PO DAILY 09/04/18 09/04/18 Lisinopril [Zestril] 10 mg PO DAILY 09/04/18 09/04/18 Previous Rx's Medication Instructions Recorded Divalproex ER [Depakote ER] 1,000 mg PO 2100 30 Days #30 09/08/18 tab.er.24h Divalproex ER [Depakote ER] 250 mg PO DAILY 30 Days #30 09/08/18 tab.er.24h FLUoxetine HCL 40 mg PO DAILY #30 capsule 09/08/18 Paliperidone [Invega] 6 mg PO 2100 #30 tab.er.24 09/08/18 Pramipexole [Mirapex] 1 mg PO 2100 30 Days #30 tab 09/08/18 metFORMIN HCL [Glucophage] 500 mg PO W/BRKFST tab 09/08/18 Allergies Allergy/AdvReac Type Severity Reaction Status Date / Time No Known Allergies Allergy Verified 10/03/18 23:19 Review of Systems ROS Statement: Those systems with pertinent positive or pertinent negative responses have been documented in the HPI. ROS Other: All systems not noted in ROS Statement are negative. Past Medical History Past Medical History: No Reported History History of Any Multi-Drug Resistant Organisms: None Reported Past Surgical History: No Surgical Hx Reported Past Psychological History: Anxiety, Bipolar, Depression Smoking Status: Never smoker Past Alcohol Use History: None Reported Past Drug Use History: None Reported General Exam Limitations: no limitations General appearance: alert, in no apparent distress Head exam: Present: atraumatic, normocephalic, normal inspection Eye exam: Present: normal appearance, PERRL, EOMI. Absent: scleral icterus, conjunctival injection, periorbital swelling ENT exam: Present: normal exam, mucous membranes moist Neck exam: Present: normal inspection. Absent: tenderness, meningismus, lymphadenopathy Respiratory exam: Present: normal lung sounds bilaterally. Absent: respiratory distress, wheezes, rales, rhonchi, stridor Cardiovascular Exam: Present: normal rhythm, tachycardia, normal heart sounds. Absent: systolic murmur, diastolic murmur, rubs, gallop, clicks GI/Abdominal exam: Present: soft, normal bowel sounds. Absent: distended, tenderness, guarding, rebound, rigid Extremities exam: Present: normal inspection, full ROM, normal capillary refill. Absent: tenderness, pedal edema, joint swelling, calf tenderness Back exam: Present: normal inspection Neurological exam: Present: alert, oriented X3, CN II-XII intact Psychiatric exam: Present: normal affect, normal mood Skin exam: Present: warm, dry, intact, normal color. Absent: rash Course Vital Signs 10/03/18 23:16 Temperature 98.5 F Pulse Rate 102 H Respiratory 18 Rate Blood Pressure 133/75 O2 Sat by Pulse 95 Oximetry - Reevaluation(s) Reevaluation #1: 10/04/18 00:23 medical record is reviewed Medical Decision Making - Medical Decision Making 28 male to the ED c/o scrotal pain and homelessness. US is negative and patient can be discharged home. - Lab Data Lab Results 10/04/18 Range/Units 00:28 Urine Color Dark Yellow Urine Appearance Clear (Clear) Urine pH 6.0 (5.0-8.0) Ur Specific [place] 1.028 (1.001-1.035) Urine Protein 2+ H (Negative) Urine Glucose (UA) Negative (Negative) Urine Ketones 1+ H (Negative) Urine Blood Trace H (Negative) Urine Nitrite Negative (Negative) Urine Bilirubin 1+ H (Negative) Urine Urobilinogen 6.0 (<2.0) mg/dL Ur Leukocyte Esterase Negative (Negative) Urine RBC 3 (0-5) /hpf Urine WBC 4 (0-5) /hpf Ur Squamous Epith Cells <1 (0-4) /hpf Urine Bacteria Rare H (None) /hpf Cellular Casts 6 (0) /lpf Granular Casts 11 (0) /lpf Urine Mucus Many H (None) /hpf Urine Opiates Screen Not Detected (NotDetected) Ur Oxycodone Screen Not Detected (NotDetected) Urine Methadone Screen Not Detected (NotDetected) Ur Propoxyphene Screen Not Detected (NotDetected) Ur Barbiturates Screen Not Detected (NotDetected) U Tricyclic Antidepress Not Detected (NotDetected) Ur Phencyclidine Scrn Not Detected (NotDetected) Ur Amphetamines Screen Not Detected (NotDetected) U Methamphetamines Scrn Not Detected (NotDetected) U Benzodiazepines Scrn Detected H (NotDetected) Urine Cocaine Screen Not Detected (NotDetected) U Marijuana (THC) Screen Not Detected (NotDetected) - Radiology Data Radiology results: report reviewed (US scrotum is negative for acute disease), image reviewed Disposition Clinical Impression: Depression, Bipolar affective disorder, current episode manic with psychotic symptoms, Scrotum pain, Epididymitis Disposition: HOME SELF-CARE Condition: Good Instructions: Scrotal Pain (ED), Epididymitis (ED) Is patient prescribed a controlled substance at d/c from ED?: No Referrals: Tj Barrientos MD [Primary Care Provider] - 1-2 days
[2018-10-04 00:43] LABS: Appearance,Urine Clear (Clear); Bacteria,Urine Rare /hpf; Bilirubin,Urine 1+ (Negative); Blood,Urine Trace (Negative); Cellular Casts,Urine 6 /lpf (0); Color,Urine Dark Yellow; Glucose,Urine (UA) Negative (Negative); Granular Casts,Urine 11 /lpf (0); Ketones,Urine 1+ (Negative); Leukocyte Esterase,Urine Negative (Negative); Mucus,Urine Many /hpf; Nitrite,Urine Negative (Negative); Protein,Urine 2+ (Negative); RBC,Urine 3 /hpf (0-5); Specific Gravity,Urine 1.028 (1.001-1.035); Squamous Epithelial Cell,Urine <1 /hpf (0-4); WBC,Urine 4 /hpf (0-5)
[2018-10-04 00:51] LABS: Amphetamine Screen,Urine Not Detected (NotDetected); Barbiturate Screen,Urine Not Detected (NotDetected); Benzodiazepines Screen,Urine Detected (NotDetected); Cocaine Screen,Urine Not Detected (NotDetected); Methadone Screen, Urine Not Detected (NotDetected); Opiate Screen,Urine Not Detected (NotDetected); Oxycodone Screen, Urine Not Detected (NotDetected); Phencyclidine Screen,Urine Not Detected (NotDetected); Tricyclic Antidepressant,Urine Not Detected (NotDetected); Urn Cannabinoid Scrn Not Detected (NotDetected)
--- NOTE | 2018-10-04 00:56 | US ---
EXAMINATION TYPE: US scrotum with doppler. Grayscale and color Doppler Duplex imaging performed of t he scrotum. DATE OF EXAM: 10/04/2018 COMPARISON: NONE CLINICAL HISTORY: Pain. EC Patient stated fell on concrete 2 days ago with trauma to scrotum; c/o kristin n and swelling EXAM MEASUREMENTS: TESTICLES: Right Testicle: 4.9 x 3.1 x 2.0 cm Left Testicle: 5.4 x 3.2 x 2.4 cm EPIDIDYMIS HEAD: Right Epididymis: 0.8 x 0.7 x 0.9 cm Left Epididymis: 1.3 x 2.3 x 1.8cm PW and Color flow Doppler performed to assess for testicular vascularity; good bilateral color flow a nd waveforms are seen. There is no evidence of testicular torsion. Right: thickened epididymis is noted; cyst is noted superior to right testicle = 1.2 x 1.1 x 1.2cm, b ut within scrotal sac. Lobular border appearance is seen on right testicle. No hernia is seen, but ot her hyperechoic lobular structures are noted in superior scrotal sac on image #[id number] through #[id number], a nd are separate from right testicle (thickened vas deferens ?). Left: very thickened epididymis is seen; testicular appendix is noted = 0.4 x 0.5 x 0.5cm. Presence of hydroceles: no Presence of varicoceles: may be in right side IMPRESSION: No testicular torsion or mass. 1.2 cm cyst adjacent to the right testicle at the upper po le of uncertain significance. Bilateral thickened epididymis. Epididymitis is possible on the right s diana. There is some hyperemia of the right epididymis. No definite hernia seen.. Hyperechoic area abov e upper pole of the right testicle could relate to blood clot.
[2018-10-04] MEDS ORDERED: cefTRIAXone 250 MG VIAL IM STA (00:57)
[2018-10-04] MEDS ORDERED: AZITHROMYCIN 500 MG TAB PO STA (00:57)
[2018-10-04 01:36] VITALS: BP 140/81; PULSE 98; RESP 17; TEMP 98.6
[2018-10-05 12:22] LABS: C. trachomatis,PCR Negative (Neg,Equiv); Chlamydia trachomatis Source Urine
[2018-10-05 12:24] LABS: N. gonorrhoeae,PCR Negative (Neg,Equiv); Neisseria Source Urine
== END 2018-10-04 02:11 | disposition home or self-care (01) ==
LOC: EC 22:25
DX: N45.1 Epididymitis (principal); F31.2 Bipolar disorder, current episode manic severe with psychotic features; R00.0 Tachycardia, unspecified; Z59.0 Homelessness; Z79.899 Other long term (current) drug therapy
CPT/HCPCS: 81001; 87491; 87591; 80306; 87086; 93975; 76870; 99284; 96372; J0696

== ENCOUNTER 2018-10-04 21:14 | Emergency (ER) | payer MEDICARE, OTHER ==
--- NOTE | 2018-10-04 21:37 | ED ---
General Adult HPI - General Chief complaint: Psychiatric Symptoms Stated complaint: Mental health Time Seen by Provider: 10/04/18 21:37 Source: patient Mode of arrival: ambulatory Limitations: no limitations - History of Present Illness Initial comments: Johnathan is a 28-year-old mentally handicapped male who is very well-known to our emergency department who presents today for evaluation of agitation. Patient stayed in our emergency department overnight last night due to homelessness, he was discharges morning with the plan to return to the residential early in the evening to have residential tonight. However patient arrived after curfew and was not able stay in the residential. Patient then became agitated. The patient states that he was upset and he was "not being very nice"so the police were called. Patient states that he "said the suicide word" so the wholesale agronomist brought him to the emergency department. - Related Data Home Medications Medication Instructions Recorded Confirmed Atorvastatin [Lipitor] 20 mg PO DAILY 09/04/18 10/04/18 Lisinopril [Zestril] 10 mg PO DAILY 09/04/18 10/04/18 Pramipexole [Mirapex] 1 mg PO DAILY@2100 10/04/18 10/04/18 Previous Rx's Medication Instructions Recorded Divalproex ER [Depakote ER] 1,000 mg PO 2100 30 Days #30 09/08/18 tab.er.24h Divalproex ER [Depakote ER] 250 mg PO DAILY 30 Days #30 09/08/18 tab.er.24h FLUoxetine HCL 40 mg PO DAILY #30 capsule 09/08/18 Paliperidone [Invega] 6 mg PO 2100 #30 tab.er.24 09/08/18 metFORMIN HCL [Glucophage] 500 mg PO W/BRKFST tab 09/08/18 Allergies Allergy/AdvReac Type Severity Reaction Status Date / Time No Known Allergies Allergy Verified 10/04/18 21:33 Review of Systems ROS Statement: Those systems with pertinent positive or pertinent negative responses have been documented in the HPI. ROS Other: All systems not noted in ROS Statement are negative. Past Medical History Past Medical History: No Reported History History of Any Multi-Drug Resistant Organisms: None Reported Past Surgical History: No Surgical Hx Reported Past Psychological History: Anxiety, Bipolar, Depression Smoking Status: Never smoker Past Alcohol Use History: None Reported Past Drug Use History: None Reported General Exam - General Exam Comments Initial Comments: Physical Exam GENERAL: Patient is well-developed and well-nourished. Patient is nontoxic and well-hydrated and is in no distress. HENT: Normocephalic, Atraumatic. EYES: PERRL, EOMI PULMONARY: Unlabored respirations. No audible rales rhonchi or wheezing was noted. CARDIOVASCULAR: There is a regular rate and rhythm without any murmurs gallops or rubs. ABDOMEN: Soft and nontender with normal bowel sounds. SKIN: Redness to bilateral wrists consistent with being handcuffed : Deferred NEUROLOGIC: Alert and oriented to person, place MUSCULOSKELETAL: Normal extremities with adequate strength and full range of motion. No lower extremity swelling or edema. No calf tenderness. PSYCHIATRIC: Childlike demeanor Denies suicidal or homicidal ideation Limitations: no limitations Limitations: no limitations Course Vital Signs 10/04/18 21:20 Temperature 98.2 F Pulse Rate 96 Respiratory 18 Rate Blood Pressure 127/95 O2 Sat by Pulse 98 Oximetry Medical Decision Making - Medical Decision Making Patient was seen and evaluated, patient is calm and cooperative, patient doesn' t he had an emotional outburst when he was allowed state the residential tonight. At this time the patient needs a place to sleep for the night, he's not suicidal , homicidal or delusional he doesn't require psychiatric evaluation or admission. Patient is hungry and cold. Patient was fed, he slept comfortably. Social work contacted the residential spoke with Keshav who advised that if the patient arrives by 5:30 PM tomorrow he can speak with the real estate marketing coordinator and discussed staying there tomorrow night. This plan was discussed with patient who expressed understanding. Patient discharged in stable condition. Patient will be permitted to sleep in our lobby for the remainder of the night. Disposition Clinical Impression: Adjustment reaction, Cognitive impairment Disposition: HOME SELF-CARE Condition: Stable Additional Instructions: Go to the [facility] before 5 PM Is patient prescribed a controlled substance at d/c from ED?: No Referrals: None,Stated [Primary Care Provider] - 1-2 days
[2018-10-05 02:34] VITALS: BP 141/84; PULSE 91; RESP 17; TEMP 98
== END 2018-10-05 02:34 | disposition home or self-care (01) ==
LOC: EC 21:14
DX: F43.20 Adjustment disorder, unspecified (principal); G31.84 Mild cognitive impairment of uncertain or unknown etiology; Z79.899 Other long term (current) drug therapy; Z59.0 Homelessness
CPT/HCPCS: 82075; 99285

== ENCOUNTER 2018-10-05 05:16 | Emergency (ER) | payer MEDICARE, OTHER ==
[2018-10-05 07:27] VITALS: BP 137/88; PULSE 77; RESP 16; TEMP 98.6
--- NOTE | 2018-10-05 07:42 | ED ---
General Adult HPI - General Chief complaint: Extremity Injury, Lower Stated complaint: Foot Pain Time Seen by Provider: 10/05/18 07:26 Source: patient, RN notes reviewed Mode of arrival: ambulatory Limitations: no limitations - History of Present Illness Initial comments: Patient is a pleasant 28-year-old male presenting to the emergency department with complaints of blister of the left foot. Patient states this is been there just for a day or so. Patient does admit to doing a lot of walking. Patient was in the hospital last night however did not want to be discharged at that time so he decided to check back in. Patient has no other complaints at this time. Patient states there is not much discomfort. Patient has not noticed any redness or fever. - Related Data Home Medications Medication Instructions Recorded Confirmed Atorvastatin [Lipitor] 20 mg PO DAILY 09/04/18 10/04/18 Lisinopril [Zestril] 10 mg PO DAILY 09/04/18 10/04/18 Pramipexole [Mirapex] 1 mg PO DAILY@2100 10/04/18 10/04/18 Previous Rx's Medication Instructions Recorded Divalproex ER [Depakote ER] 1,000 mg PO 2100 30 Days #30 09/08/18 tab.er.24h Divalproex ER [Depakote ER] 250 mg PO DAILY 30 Days #30 09/08/18 tab.er.24h FLUoxetine HCL 40 mg PO DAILY #30 capsule 09/08/18 Paliperidone [Invega] 6 mg PO 2100 #30 tab.er.24 09/08/18 metFORMIN HCL [Glucophage] 500 mg PO W/BRKFST tab 09/08/18 Allergies Allergy/AdvReac Type Severity Reaction Status Date / Time No Known Allergies Allergy Verified 10/05/18 07:23 Review of Systems ROS Statement: Those systems with pertinent positive or pertinent negative responses have been documented in the HPI. ROS Other: All systems not noted in ROS Statement are negative. Constitutional: Denies: fever Eyes: Denies: eye pain ENT: Denies: ear pain Respiratory: Denies: cough Cardiovascular: Denies: chest pain Endocrine: Denies: fatigue Gastrointestinal: Denies: abdominal pain Genitourinary: Denies: dysuria Musculoskeletal: Denies: back pain Skin: Denies: rash Neurological: Denies: weakness Past Medical History Past Medical History: No Reported History History of Any Multi-Drug Resistant Organisms: None Reported Past Surgical History: No Surgical Hx Reported Past Psychological History: Anxiety, Bipolar, Depression Smoking Status: Never smoker Past Alcohol Use History: None Reported Past Drug Use History: None Reported General Exam Limitations: no limitations General appearance: alert, in no apparent distress Head exam: Present: atraumatic Respiratory exam: Present: normal lung sounds bilaterally Cardiovascular Exam: Present: regular rate, normal rhythm GI/Abdominal exam: Present: soft. Absent: tenderness Extremities exam: Present: other (Left lateral heel with one by 2 cm blister. No surrounding erythema. Blister is not open.) Neurological exam: Present: alert Psychiatric exam: Present: normal affect, normal mood Skin exam: Present: other (Blister left heel) Course Vital Signs 10/05/18 07:20 Temperature 98.6 F Pulse Rate 77 Respiratory 16 Rate Blood Pressure 137/88 O2 Sat by Pulse 99 Oximetry Medical Decision Making - Medical Decision Making Patient advised to keep area covered. Patient advised when the blister does open to remove skin. Patient also advised to get new shoes. Disposition Clinical Impression: Blister of foot Disposition: HOME SELF-CARE Condition: Stable Instructions: Blister (ED) Additional Instructions: Keep area covered with bandage or Band-Aid. When the blister opens remove skin. Continue to keep area covered. Wash area twice daily with soap and water. Apply antibiotic ointment as needed. Please get new shoes. Is patient prescribed a controlled substance at d/c from ED?: No Referrals: Natalia Castro MD [STAFF PHYSICIAN] - 1-2 days Time of Disposition: 07:42
== END 2018-10-05 07:40 | disposition home or self-care (01) ==
LOC: EC 05:16 → EEVIPCON 05:16 → EC 07:40
DX: S90.822A Blister (nonthermal), left foot, initial encounter (principal); Z79.899 Other long term (current) drug therapy
CPT/HCPCS: 99283

== ENCOUNTER 2018-10-09 15:04 | Emergency (ER) | payer MEDICARE, OTHER ==
[2018-10-09 15:14] VITALS: RESP 18; TEMP 98.2
[2018-10-09] MEDS ORDERED: SODIUM CHLORIDE 0.9% 1,000 ML IV ONE (15:58)
[2018-10-09 16:23] LABS: Basophils % (A) 1 %; Eosinophils # (A) 0.1 k/uL (0-0.7); Eosinophils % (A) 1 %; HCT 47.2 % (39.0-53.0); HGB 15.1 gm/dL (13.0-17.5); Lymphocytes % (A) 36 %; MCH 28.3 pg (25.0-35.0); MCV 88.6 fL (80.0-100.0); Mean Platelet Volume 6.6; Monocytes # (A) 0.7 k/uL (0-1.0); Monocytes % (A) 8 %; Neutrophils # (A) 4.2 k/uL (1.3-7.7); Neutrophils % (A) 51 %; Platelet Count 277 k/uL (150-450); RBC 5.33 m/uL (4.30-5.90); RDW 13.5 % (11.5-15.5); WBC 8.2 k/uL (3.8-10.6)
[2018-10-09 16:26] LABS: ALT 83 U/L (21-72); AST 59 U/L (17-59); Albumin 4.3 g/dL (3.5-5.0); Alkaline Phosphatase 39 U/L (38-126); Anion Gap 13 mmol/L; Blood Urea Nitrogen 16 mg/dL (9-20); Calcium 9.4 mg/dL (8.4-10.2); Carbon Dioxide 20 mmol/L (22-30); Chloride 107 mmol/L (98-107); Glucose 88 mg/dL (74-99); Lipase 243 U/L (23-300); Potassium 4.9 mmol/L (3.5-5.1); Sodium 140 mmol/L (137-145); Total Bilirubin 1.5 mg/dL (0.2-1.3); Total Protein 7.7 g/dL (6.3-8.2)
--- NOTE | 2018-10-09 16:50 | ED ---
Nausea/Vomiting/Diarrhea HPI - General Chief complaint: Nausea/Vomiting/Diarrhea Stated complaint: Diarrhea Time Seen by Provider: 10/09/18 15:33 Source: patient Mode of arrival: EMS Limitations: no limitations - History of Present Illness Initial comments: 28yo male with PMH of DM presenting today for cc of diarrhea x 2 days. Pt states that he has had diarrhea for the past two days. He states he did notice a small amount of blood in his stool. He states he has mild lower abdominal pain without radiation, denies any agrevating or alleviating factors. He denies any upper abomdinal pain, nausea, vomiting, chest pain, dyspnea, dyspnea upon exertion, cough, congestion, urgency, frequency, dysuria. Pt denies sick contact or recent travel. Remainder of ROS (-). Upon arrival pt appears well, there are no signs of acute distress. VS within acceptable limits, pt elevated BP noted. - Related Data Home Medications Medication Instructions Recorded Confirmed Atorvastatin [Lipitor] 20 mg PO DAILY 09/04/18 10/09/18 Lisinopril [Zestril] 10 mg PO DAILY 09/04/18 10/09/18 Pramipexole [Mirapex] 1 mg PO DAILY@2100 10/04/18 10/09/18 Paliperidone [Invega] 6 mg PO DAILY@209910/09/18 10/09/18 Previous Rx's Medication Instructions Recorded Divalproex ER [Depakote ER] 1,000 mg PO 2100 30 Days #30 09/08/18 tab.er.24h Divalproex ER [Depakote ER] 250 mg PO DAILY 30 Days #30 09/08/18 tab.er.24h FLUoxetine HCL 40 mg PO DAILY #30 capsule 09/08/18 metFORMIN HCL [Glucophage] 500 mg PO W/BRKFST tab 09/08/18 Allergies Allergy/AdvReac Type Severity Reaction Status Date / Time No Known Allergies Allergy Verified 10/09/18 22:20 Review of Systems ROS Statement: Those systems with pertinent positive or pertinent negative responses have been documented in the HPI. ROS Other: All systems not noted in ROS Statement are negative. Past Medical History Past Medical History: Diabetes Mellitus History of Any Multi-Drug Resistant Organisms: None Reported Past Surgical History: No Surgical Hx Reported Past Psychological History: Anxiety, Bipolar, Depression Smoking Status: Never smoker Past Alcohol Use History: None Reported Past Drug Use History: None Reported General Exam - General Exam Comments Initial Comments: General: The patient is awake and alert, in no distress, and does not appear acutely ill. Eye: Pupils are equal, round and reactive to light, extra-ocular movements are intact. No nystagmus. There is normal conjunctiva bilaterally. No signs of icterus. Ears, nose, mouth and throat: There are moist mucous membranes and no oral lesions. Neck: The neck is supple, there is no tenderness or JVD. Cardiovascular: There is a regular rate and rhythm. No murmur, rub or gallop is appreciated. Respiratory: Lungs are clear to auscultation, respirations are non-labored, breath sounds are equal. No wheezes, stridor, rales, or rhonchi. Gastrointestinal: No noted diaphoresis, jaundice, pallor, protecting postures or squirming. Symmetrical pigmentation of abdomen without signs of inflammation. Umbilicus mildline, inverted without swelling. No dilated veins. Abdomen contour obese. No noted abdominal distention. No visible masses. No peristalsis, aortic pulsations, or ventral hernia. Bowel sounds audible in all 4 quadrants, unremarkable. No friction rubs or venous hums. No epigastic, hepatic or abdominal bruits. Mild tenderness to light or deep palpation of the lower quadrants b/l. Liver edge, not palpable. Spleen edge, right and left kidney not palpable. Superior bladder margin non-tender. Special Testing: Negative [place], Rovsing, McBurney, Michael. Iliopsoas and obturator tests negative bilaterally. Negative Heel Jar test/fernandez sign. No CVA tenderness. Digital rectal exam revealed no hemorrhoids, masses or stool balls, No fissures noted. No gross blood. Negative givens turners or cullens sign Musculoskeletal: Normal ROM, no tenderness. Strength 5/5. Sensation intact. Pulses equal bilaterally 2+. Neurological: A&O x 3. CN II-XII intact, There are no obvious motor or sensory deficits. Coordination appears grossly intact. Speech is normal. Skin: Skin is warm and dry and no rashes or lesions are noted. Psychiatric: Cooperative, appropriate mood & affect, normal judgment. Limitations: no limitations Course Vital Signs 10/09/18 10/09/18 15:11 18:10 Temperature 98.2 F 98.2 F Pulse Rate 89 87 Respiratory 18 18 Rate Blood Pressure 144/91 126/69 O2 Sat by Pulse 98 100 Oximetry Medical Decision Making - Medical Decision Making CT (-) HgB stable. BP within acceptable limits. Pt appears well. Abdominal exam revealed mild tenderness. No rigidity or guarding. Occult blood (-). Pt given IV fluids. Upon multiple reexamination pt appears well, no diarrhea. At this time I feel pt is stable for discharge with primary care f/u in next 1-2 days. Pt discharged in stable condition after discussing the return parameters in detail. I did call pt guardian who did state pt is living at homeless correction he did not give further instruction nor want involvement in pt care. Case discussed in detail wtih Dr. Pepe prior to pt discharge, in agreement with impression and plan. - Lab Data Result diagrams: 10/09/18 15:19 10/09/18 15:19 Lab Results 10/09/18 10/09/18 10/09/18 Range/Units 15:19 15:19 16:01 WBC 8.2 (3.8-10.6) k/uL RBC 5.33 (4.30-5.90) m/uL Hgb 15.1 (13.0-17.5) gm/dL Hct 47.2 (39.0-53.0) % MCV 88.6 (80.0-100.0) fL MCH 28.3 (25.0-35.0) pg MCHC 32.0 (31.0-37.0) g/dL RDW 13.5 (11.5-15.5) % Plt Count 277 (150-450) k/uL Neutrophils % 51 % Lymphocytes % 36 % Monocytes % 8 % Eosinophils % 1 % Basophils % 1 % Neutrophils # 4.2 (1.3-7.7) k/uL Lymphocytes # 3.0 (1.0-4.8) k/uL Monocytes # 0.7 (0-1.0) k/uL Eosinophils # 0.1 (0-0.7) k/uL Basophils # 0.0 (0-0.2) k/uL Sodium 140 (137-145) mmol/L Potassium 4.9 (3.5-5.1) mmol/L Chloride 107 (98-107) mmol/L Carbon Dioxide 20 L (22-30) mmol/L Anion Gap 13 mmol/L BUN 16 (9-20) mg/dL Creatinine 0.55 L (0.66-1.25) mg/dL Est GFR (CKD-EPI)AfAm >90 (>60 ml/min/1.73 sqM) Est GFR (CKD-EPI)NonAf >90 (>60 ml/min/1.73 sqM) Glucose 88 (74-99) mg/dL Calcium 9.4 (8.4-10.2) mg/dL Total Bilirubin 1.5 H (0.2-1.3) mg/dL AST 59 (17-59) U/L ALT 83 H (21-72) U/L Alkaline Phosphatase 39 (38-126) U/L Total Protein 7.7 (6.3-8.2) g/dL Albumin 4.3 (3.5-5.0) g/dL Lipase 243 (23-300) U/L Stool Occult Blood Negative (Negative) Disposition Clinical Impression: Acute diarrhea Disposition: HOME SELF-CARE Condition: Good Instructions: Acute Diarrhea (ED) Additional Instructions: Please follow-up with family doctor in the next 2 days. Please return to emergency room if the symptoms increase or worsen or for any other concerns. Is patient prescribed a controlled substance at d/c from ED?: No Referrals: Tj Barrientos MD [Primary Care Provider] - 1-2 days Time of Disposition: 17:40
--- NOTE | 2018-10-09 17:19 | CT ---
EXAMINATION TYPE: CT abdomen pelvis w con DATE OF EXAM: 10/09/2018 COMPARISON: None HISTORY: Diarrhea CT DLP: 1785.4 mGycm Automated exposure control for dose reduction was used. TECHNIQUE: Helical acquisition of images was performed from the lung bases through the pelvis. CONTRAST: Performed without Oral Contrast and with IV Contrast, patient injected with 100 mL of Isovue 300. FINDINGS: Lung bases are clear. There is no pleural effusion. Heart size is normal. Liver spleen pancreas gallbladder appear normal. Bile ducts are not dilated. There is no adrenal mass . Kidneys show satisfactory contrast opacification. There is no hydronephrosis. Appendix appears norm al. There is no retroperitoneal adenopathy. Bladder distends smoothly. There is no inguinal hernia. T here is no free fluid in the pelvis. There is no evidence of mesenteric edema. I see no intestinal wa ll thickening. There are no dilated loops. The bony structures are intact. IMPRESSION: NEGATIVE CT SCAN ABDOMEN AND PELVIS. NORMAL APPENDIX.
[2018-10-09 18:12] VITALS: BP 126/69; PULSE 87
== END 2018-10-09 18:10 | disposition home or self-care (01) ==
LOC: EC 15:04
DX: R19.7 Diarrhea, unspecified (principal); R10.30 Lower abdominal pain, unspecified; Z79.899 Other long term (current) drug therapy
CPT/HCPCS: 36415; 80053; 83690; 85025; 82272; 74177; 99285; 96360; 96361; Q9967

== ENCOUNTER 2018-10-09 22:12 | Emergency (ER) | payer MEDICARE, OTHER ==
[2018-10-09 22:20] VITALS: PULSE 97; RESP 18
--- NOTE | 2018-10-09 22:25 | ED ---
General Adult HPI - General Chief complaint: Nausea/Vomiting/Diarrhea Stated complaint: Diarrhea Time Seen by Provider: 10/09/18 22:24 Source: patient Mode of arrival: EMS Limitations: no limitations - History of Present Illness Initial comments: Johnathan is a 28-year-old male with cognitive impairment who is very well-known to our emergency department due to his frequent visits which have been much more frequent in the past couple of months. Patient was evaluated in our emergency department earlier in the day after he had a episode of diarrhea in a public restroom and EMS was called due to him causing a mess and that restroom. Evaluation was benign and patient was discharged, [facility]. Patient had another episode of loose stool and EMS was again contacted. Upon arrival the patient reports he's feeling well, he has no complaints, he is hungry. does have cognitive delay in difficulty in comprehending his medical diagnoses. Patient is unable to care for himself and does have a guardian. Guardian has consented to care. The guardian is the patient's father who is aware that the patient is currently living in a homeless care home. - Related Data Home Medications Medication Instructions Recorded Confirmed Atorvastatin [Lipitor] 20 mg PO DAILY 09/04/18 10/09/18 Lisinopril [Zestril] 10 mg PO DAILY 09/04/18 10/09/18 Pramipexole [Mirapex] 1 mg PO DAILY@2100 10/04/18 10/09/18 Paliperidone [Invega] 6 mg PO DAILY@209910/09/18 10/09/18 Previous Rx's Medication Instructions Recorded Divalproex ER [Depakote ER] 1,000 mg PO 2100 30 Days #30 09/08/18 tab.er.24h Divalproex ER [Depakote ER] 250 mg PO DAILY 30 Days #30 09/08/18 tab.er.24h FLUoxetine HCL 40 mg PO DAILY #30 capsule 09/08/18 metFORMIN HCL [Glucophage] 500 mg PO W/BRKFST tab 09/08/18 Allergies Allergy/AdvReac Type Severity Reaction Status Date / Time No Known Allergies Allergy Verified 10/09/18 22:20 Review of Systems ROS Statement: Those systems with pertinent positive or pertinent negative responses have been documented in the HPI. ROS Other: All systems not noted in ROS Statement are negative. Past Medical History Past Medical History: Diabetes Mellitus History of Any Multi-Drug Resistant Organisms: None Reported Past Surgical History: No Surgical Hx Reported Past Psychological History: Anxiety, Bipolar, Depression Smoking Status: Never smoker Past Alcohol Use History: None Reported Past Drug Use History: None Reported General Exam - General Exam Comments Initial Comments: Physical Exam GENERAL: Patient is well-developed and well-nourished. Patient is nontoxic and well-hydrated and is in no distress. HENT: Normocephalic, Atraumatic. EYES: PERRL, EOMI PULMONARY: Unlabored respirations. No audible rales rhonchi or wheezing was noted. CARDIOVASCULAR: There is a regular rate and rhythm without any murmurs gallops or rubs. ABDOMEN: Soft and nontender with normal bowel sounds. SKIN: Skin is clear with no lesions or rashes and otherwise unremarkable. Blisters on bilateral feet : Deferred NEUROLOGIC: Patient is alert and oriented x3. Moving all extremities spontaneously MUSCULOSKELETAL: Normal extremities with adequate strength and full range of motion. No lower extremity swelling or edema. No calf tenderness. PSYCHIATRIC: Pleasant childlike demeanor Limitations: no limitations Limitations: no limitations Course Vital Signs 10/09/18 10/10/18 22:18 01:50 Temperature 97.9 F 98.1 F Pulse Rate 97 97 Respiratory 18 18 Rate Blood Pressure 130/83 131/84 O2 Sat by Pulse 97 96 Oximetry Medical Decision Making - Medical Decision Making Patient was seen and evaluated immediately upon arrival to the emergency department. Patient with no complaints. Does report he had one loose stool prior to arrival. Not experiencing any abdominal pain, nausea or vomiting. Patient was given a snack and a Pepsi per his request At this time and don't feel the patient warrants any further workup. Patient's agreeable to this plan. Patient playing on his computer at bedside. Patient in the emergency department for 3 hours with no further episodes of diarrhea. The patient has been seen 7 times in the past 9 days, most of his visits her at night and his discharges delayed because the patient does not have a place to sleep if he does not arrived at the care home early in the evening. At this time I cannot discharge the patient because he does not have a place to sleep. The patient does have a guardian however the guardian has not secured him a safe place to sleep in a regular basis. The patient is essentially homeless. I am concerned of the guardian is not providing Johnathan with his basic human needs including care home. An EPS report was filed as I feel the patient would benefit from a public guardian. Patient was discharged but was advised that as long as he is cooperative he can continue to sleep in the emergency department until morning. Patient is to return to the care home tomorrow evening for nighttime placement. Patient understands this plan. Disposition Clinical Impression: Loose stools Disposition: HOME SELF-CARE Condition: Good Instructions: Acute Diarrhea (ED) Is patient prescribed a controlled substance at d/c from ED?: No Referrals: Tj Barrientos MD [Primary Care Provider] - 1-2 days Time of Disposition: 23:42
[2018-10-10 01:51] VITALS: BP 131/84; TEMP 98.1
== END 2018-10-10 01:58 | disposition home or self-care (01) ==
LOC: EC 22:12
DX: R19.5 Other fecal abnormalities (principal); F31.9 Bipolar disorder, unspecified; F41.9 Anxiety disorder, unspecified; Z79.899 Other long term (current) drug therapy; Z59.0 Homelessness
CPT/HCPCS: 99284 ×2; 96360; 96361; 99285; 36415; 80053; 83690; 85025; 82272; 74177; Q9967

== ENCOUNTER 2018-10-12 14:56 | Emergency (ER) | payer MEDICARE, OTHER ==
--- NOTE | 2018-10-12 15:28 | ED ---
General Adult HPI - General Chief complaint: Chest Pain Stated complaint: CHEST PAIN Time Seen by Provider: 10/12/18 15:00 Source: patient, RN notes reviewed, old records reviewed Mode of arrival: ambulatory Limitations: no limitations - History of Present Illness Initial comments: 28-year-old male presenting for evaluation of right-sided chest pain. Patient' s pain began approximately 5 hours prior to arrival. Patient is somewhat a poor historian and unable to exactly characterize his pain. He did report several episodes of nausea and vomiting. He has no known history of coronary artery disease, no history DVT or PE, no history of pneumothorax. He has been dealing with some intermittent diarrhea which she has been evaluated for the emergency department over the past one week. Abdominal pain at this time. No fever or chills. - Related Data Home Medications Medication Instructions Recorded Confirmed Atorvastatin [Lipitor] 20 mg PO DAILY 09/04/18 10/12/18 Lisinopril [Zestril] 10 mg PO DAILY 09/04/18 10/12/18 Pramipexole [Mirapex] 1 mg PO HS@2100 10/04/18 10/12/18 Paliperidone [Invega] 6 mg PO HS@2100 10/09/18 10/12/18 Divalproex ER [Depakote ER] 1,000 mg PO HS@2100 10/12/18 10/12/18 Previous Rx's Medication Instructions Recorded Divalproex ER [Depakote ER] 250 mg PO DAILY 30 Days #30 09/08/18 tab.er.24h FLUoxetine HCL 40 mg PO DAILY #30 capsule 09/08/18 metFORMIN HCL [Glucophage] 500 mg PO W/BRKFST tab 09/08/18 Allergies Allergy/AdvReac Type Severity Reaction Status Date / Time No Known Allergies Allergy Verified 10/12/18 15:10 Review of Systems ROS Statement: Those systems with pertinent positive or pertinent negative responses have been documented in the HPI. ROS Other: All systems not noted in ROS Statement are negative. Past Medical History Past Medical History: Diabetes Mellitus History of Any Multi-Drug Resistant Organisms: None Reported Past Surgical History: No Surgical Hx Reported Past Psychological History: Anxiety, Bipolar, Depression Smoking Status: Never smoker Past Alcohol Use History: None Reported Past Drug Use History: None Reported General Exam Limitations: no limitations General appearance: alert, in no apparent distress Head exam: Present: atraumatic, normocephalic Eye exam: Present: normal appearance, PERRL ENT exam: Present: normal exam Neck exam: Present: normal inspection. Absent: tenderness, meningismus Respiratory exam: Present: normal lung sounds bilaterally. Absent: respiratory distress, wheezes Cardiovascular Exam: Present: regular rate, normal rhythm GI/Abdominal exam: Present: soft. Absent: distended, tenderness Extremities exam: Present: normal inspection, full ROM, normal capillary refill. Absent: pedal edema Neurological exam: Present: alert. Absent: motor sensory deficit Skin exam: Present: warm, dry, intact. Absent: cyanosis, diaphoretic Course Vital Signs 10/12/18 15:00 Temperature 98.6 F Pulse Rate 75 Respiratory 16 Rate Blood Pressure 121/87 O2 Sat by Pulse 98 Oximetry EKG Findings - EKG Comments: EKG Findings:: EKG: Normal sinus rhythm, ventricular rate 82, MA interval 1:30, castration 92, QTC [address] segment changes, no ischemic changes. Medical Decision Making - Medical Decision Making 28-year-old male presents for right-sided chest pain. EKG nonischemic, chest x- ray negative for any acute cardiopulmonary disease. Patient has normal CBC, normal white count, stable hemoglobin, nitrites are within normal limits, troponin is negative. Patient is mildly elevated bilirubin, AST and ALT, bilirubin is 1.7 from 3 days prior to 1.5. Patient had computed tomography scan of the abdomen on 1220 which showed normal liver, normal gallbladder, normal bile ducts. Patient will follow-up with his primary care physician regarding these abnormalities, I do not believe these are related to his right- sided upper chest pain. Patient will follow up as an outpatient. - Lab Data Result diagrams: 10/12/18 15:21 10/12/18 15:21 Lab Results 10/12/18 10/12/18 10/12/18 Range/Units 15:21 15:21 15:21 WBC 8.0 (3.8-10.6) k/uL RBC 5.76 (4.30-5.90) m/uL Hgb 16.5 (13.0-17.5) gm/dL Hct 50.3 (39.0-53.0) % MCV 87.4 (80.0-100.0) fL MCH 28.6 (25.0-35.0) pg MCHC 32.7 (31.0-37.0) g/dL RDW 13.4 (11.5-15.5) % Plt Count 280 (150-450) k/uL Neutrophils % 59 % Lymphocytes % 31 % Monocytes % 7 % Eosinophils % 1 % Basophils % 0 % Neutrophils # 4.7 (1.3-7.7) k/uL Lymphocytes # 2.5 (1.0-4.8) k/uL Monocytes # 0.6 (0-1.0) k/uL Eosinophils # 0.1 (0-0.7) k/uL Basophils # 0.0 (0-0.2) k/uL PT (9.0-12.0) sec INR (<1.2) APTT (22.0-30.0) sec Sodium 139 (137-145) mmol/L Potassium 4.3 (3.5-5.1) mmol/L Chloride 104 (98-107) mmol/L Carbon Dioxide 24 (22-30) mmol/L Anion Gap 11 mmol/L BUN 18 (9-20) mg/dL Creatinine 0.66 (0.66-1.25) mg/dL Est GFR (CKD-EPI)AfAm >90 (>60 ml/min/1.73 sqM) Est GFR (CKD-EPI)NonAf >90 (>60 ml/min/1.73 sqM) Glucose 90 (74-99) mg/dL Calcium 10.0 (8.4-10.2) mg/dL Magnesium 1.8 (1.6-2.3) mg/dL Total Bilirubin 1.7 H (0.2-1.3) mg/dL AST 61 H (17-59) U/L ALT 104 H (21-72) U/L Alkaline Phosphatase 53 (38-126) U/L Total Creatine Kinase 214 H (55-170) U/L CK-MB (CK-2) 1.1 (0.0-2.4) ng/mL CK-MB (CK-2) Rel Index 0.5 Troponin I <0.012 (0.000-0.034) ng/mL Total Protein 7.9 (6.3-8.2) g/dL Albumin 4.6 (3.5-5.0) g/dL Lipase 140 (23-300) U/L 12/23/18 Range/Units 15:21 WBC (3.8-10.6) k/uL RBC (4.30-5.90) m/uL Hgb (13.0-17.5) gm/dL Hct (39.0-53.0) % MCV (80.0-100.0) fL MCH (25.0-35.0) pg MCHC (31.0-37.0) g/dL RDW (11.5-15.5) % Plt Count (150-450) k/uL Neutrophils % % Lymphocytes % % Monocytes % % Eosinophils % % Basophils % % Neutrophils # (1.3-7.7) k/uL Lymphocytes # (1.0-4.8) k/uL Monocytes # (0-1.0) k/uL Eosinophils # (0-0.7) k/uL Basophils # (0-0.2) k/uL PT 10.5 (9.0-12.0) sec INR 1.0 (<1.2) APTT 23.5 (22.0-30.0) sec Sodium (137-145) mmol/L Potassium (3.5-5.1) mmol/L Chloride (98-107) mmol/L Carbon Dioxide (22-30) mmol/L Anion Gap mmol/L BUN (9-20) mg/dL Creatinine (0.66-1.25) mg/dL Est GFR (CKD-EPI)AfAm (>60 ml/min/1.73 sqM) Est GFR (CKD-EPI)NonAf (>60 ml/min/1.73 sqM) Glucose (74-99) mg/dL Calcium (8.4-10.2) mg/dL Magnesium (1.6-2.3) mg/dL Total Bilirubin (0.2-1.3) mg/dL AST (17-59) U/L ALT (21-72) U/L Alkaline Phosphatase (38-126) U/L Total Creatine Kinase (55-170) U/L CK-MB (CK-2) (0.0-2.4) ng/mL CK-MB (CK-2) Rel Index Troponin I (0.000-0.034) ng/mL Total Protein (6.3-8.2) g/dL Albumin (3.5-5.0) g/dL Lipase (23-300) U/L Disposition Clinical Impression: Chest pain Disposition: ADMITTED IP TO THIS HOSP Condition: Stable Instructions: Chest Pain (ED) Is patient prescribed a controlled substance at d/c from ED?: No Referrals: Tj Barrientos MD [Primary Care Provider] - 1-2 days Time of Disposition: 16:30
[2018-10-12 15:43] LABS: Basophils % (A) 0 %; Eosinophils # (A) 0.1 k/uL (0-0.7); Eosinophils % (A) 1 %; HCT 50.3 % (39.0-53.0); HGB 16.5 gm/dL (13.0-17.5); Lymphocytes # (A) 2.5 k/uL (1.0-4.8); Lymphocytes % (A) 31 %; MCH 28.6 pg (25.0-35.0); MCHC 32.7 g/dL (31.0-37.0); MCV 87.4 fL (80.0-100.0); Mean Platelet Volume 6.5; Monocytes # (A) 0.6 k/uL (0-1.0); Monocytes % (A) 7 %; Neutrophils # (A) 4.7 k/uL (1.3-7.7); Neutrophils % (A) 59 %; Platelet Count 280 k/uL (150-450); RBC 5.76 m/uL (4.30-5.90); RDW 13.4 % (11.5-15.5)
--- NOTE | 2018-10-12 15:49 | XR ---
EXAMINATION TYPE: XR chest 2V DATE OF EXAM: 10/12/2018 COMPARISON: NONE HISTORY: Chest pain TECHNIQUE: Frontal and lateral views of the chest are obtained. FINDINGS: Heart and mediastinum are normal. Lungs are clear. Diaphragm is normal. Bony thorax is int act. There are chest leads. IMPRESSION: Normal chest
[2018-10-12 15:51] LABS: Partial Thromboplastin Time 23.5 sec (22.0-30.0); Prothrombin Time 10.5 sec (9.0-12.0)
[2018-10-12 15:58] LABS: ALT 104 U/L (21-72); AST 61 U/L (17-59); Albumin 4.6 g/dL (3.5-5.0); Alkaline Phosphatase 53 U/L (38-126); Anion Gap 11 mmol/L; Blood Urea Nitrogen 18 mg/dL (9-20); Carbon Dioxide 24 mmol/L (22-30); Chloride 104 mmol/L (98-107); Glucose 90 mg/dL (74-99); Lipase 140 U/L (23-300); Magnesium 1.8 mg/dL (1.6-2.3); Potassium 4.3 mmol/L (3.5-5.1); Sodium 139 mmol/L (137-145); Total Bilirubin 1.7 mg/dL (0.2-1.3); Total Protein 7.9 g/dL (6.3-8.2)
[2018-10-12 16:02] LABS: Creatine Kinase 214 U/L (55-170)
[2018-10-12 16:14] LABS: Creatine Kinase MB 1.1 ng/mL (0.0-2.4); Troponin I <0.012 ng/mL (0.000-0.034)
[2018-10-12 16:52] VITALS: BP 107/69; PULSE 82; RESP 15; TEMP 97.6
== END 2018-10-12 16:45 | disposition other institution (70) ==
LOC: EC 14:56
DX: R07.9 Chest pain, unspecified (principal); R74.8 Abnormal levels of other serum enzymes; R79.89 Other specified abnormal findings of blood chemistry; R11.2 Nausea with vomiting, unspecified; R19.7 Diarrhea, unspecified; R10.9 Unspecified abdominal pain; F31.9 Bipolar disorder, unspecified; Z79.899 Other long term (current) drug therapy
CPT/HCPCS: 36415; 71046; 80053; 82550; 82553; 83690; 83735; 84484; 85025; 85610; 85730; 93005; 99285

== ENCOUNTER 2018-12-01 13:08 | Emergency (ER) | payer MEDICARE, OTHER ==
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
[2018-12-01 14:14] VITALS: BP 125/103; PULSE 89; RESP 18; TEMP 98.1
[2018-12-01 16:18] LABS: Amphetamine Screen,Urine Not Detected (NotDetected); Barbiturate Screen,Urine Not Detected (NotDetected); Benzodiazepines Screen,Urine Not Detected (NotDetected); Cocaine Screen,Urine Not Detected (NotDetected); Methadone Screen, Urine Not Detected (NotDetected); Opiate Screen,Urine Not Detected (NotDetected); Oxycodone Screen, Urine Not Detected (NotDetected); Phencyclidine Screen,Urine Not Detected (NotDetected); Tricyclic Antidepressant,Urine Not Detected (NotDetected); Urn Cannabinoid Scrn Not Detected (NotDetected)
== END 2018-12-01 17:10 | disposition home or self-care (01) ==
LOC: EC 13:08
DX: F31.30 Bipolar disorder, current episode depressed, mild or moderate severity, unspecified (principal); R45.851 Suicidal ideations; Z79.899 Other long term (current) drug therapy
CPT/HCPCS: 80306; 99285

== ENCOUNTER 2018-12-04 17:51 | Emergency (ER) | payer MEDICARE, OTHER ==
[2018-12-04 18:46] VITALS: TEMP 98.7
--- NOTE | 2018-12-04 20:09 | ED ---
Abdominal Pain HPI - General Chief Complaint: Abdominal Pain Stated Complaint: ABD PAIN Time Seen by Provider: 12/04/18 19:11 Source: patient, EMS, RN notes reviewed, old records reviewed Mode of arrival: EMS Limitations: no limitations - History of Present Illness Initial Comments: Disposition 28 rolled male with a history of homelessness presents emergency Department today with complaints of dysuria and back pain. Patient reports that symptoms started today. He also states he fell on his back. Patient states that he feels like he needs to be admitted. He states he has no know where to go if he is discharged to home. He reports he got an argument with his father who is guardian. Patient is currently been staying at shelters. He states he cannot go back to the longterm. - Related Data Home Medications Medication Instructions Recorded Confirmed Atorvastatin [Lipitor] 20 mg PO DAILY 09/04/18 12/04/18 Lisinopril [Zestril] 10 mg PO DAILY 09/04/18 12/04/18 Pramipexole [Mirapex] 2 mg PO HS@2100 10/04/18 12/04/18 Divalproex Sodium 250 mg PO TID 12/01/18 12/04/18 Famotidine [Pepcid] 20 mg PO DAILY 12/01/18 12/04/18 risperiDONE [RisperDAL] 1 mg PO QAM 12/01/18 12/04/18 Previous Rx's Medication Instructions Recorded FLUoxetine HCL 40 mg PO DAILY #30 capsule 09/08/18 Allergies Allergy/AdvReac Type Severity Reaction Status Date / Time No Known Allergies Allergy Verified 12/04/18 18:57 Review of Systems ROS Statement: Those systems with pertinent positive or pertinent negative responses have been documented in the HPI. ROS Other: All systems not noted in ROS Statement are negative. Past Medical History Past Medical History: Diabetes Mellitus History of Any Multi-Drug Resistant Organisms: None Reported Past Surgical History: No Surgical Hx Reported Past Psychological History: Anxiety, Bipolar, Depression Smoking Status: Never smoker Past Alcohol Use History: None Reported Past Drug Use History: None Reported General Exam - General Exam Comments Initial Comments: 28-year-old male. Alert and oriented 3. Patient appears in no significant distress. Limitations: no limitations General appearance: alert, in no apparent distress Head exam: Present: atraumatic, normocephalic, normal inspection Eye exam: Present: normal appearance, PERRL, EOMI. Absent: scleral icterus, conjunctival injection, periorbital swelling ENT exam: Present: normal exam, mucous membranes moist Neck exam: Present: normal inspection. Absent: tenderness, meningismus, lymphadenopathy Respiratory exam: Present: normal lung sounds bilaterally. Absent: respiratory distress, wheezes, rales, rhonchi, stridor Cardiovascular Exam: Present: regular rate, normal rhythm, normal heart sounds. Absent: systolic murmur, diastolic murmur, rubs, gallop, clicks GI/Abdominal exam: Present: soft, normal bowel sounds. Absent: distended, tenderness, guarding, rebound, rigid exam: Present: testicular tenderness (Right testicular tenderness). Absent: normal inspection, urethral discharge Extremities exam: Present: normal inspection, full ROM, normal capillary refill. Absent: tenderness, pedal edema, joint swelling, calf tenderness Back exam: Present: normal inspection Neurological exam: Present: alert, oriented X3, CN II-XII intact Psychiatric exam: Present: normal affect, normal mood Skin exam: Present: warm, dry, intact, normal color. Absent: rash Course Vital Signs 12/04/18 18:44 Temperature 98.7 F Pulse Rate 84 Respiratory 18 Rate Blood Pressure 134/86 O2 Sat by Pulse 97 Oximetry Medical Decision Making - Medical Decision Making 28-year-old male presents emergency Department today with complaints of dysuria. He also states he fell on his back. He complains of back pain. Patient states that he feels that he needs to be admitted. He is able to ambulate without difficulty. Has no neurological deficits. Urinalysis did show some mucus. Testicular exam did show an enlarged right testicle. It was firm. Scrotum ultrasound was completed. His evidence of a cystic structure in a lobulated testicle noted. No sign of torsion. I discussed the Patient to follow up with urology. With mucus in his urine related to Coumadin gonorrhea testing. I discussed treatment with one dose of antibiotic. He refused IM Rocephin. KUB is a for any acute process. He had no significant spinal tenderness on exam. Patient does have a cognitive delay. And he is currently homeless. Assessment is no reason for admission at this time. I discussed that he discharged Patient with a temperature medication. All questions answered. - Lab Data Lab Results 12/04/18 Range/Units 20:41 Urine Color Yellow Urine Appearance Clear (Clear) Urine pH 6.0 (5.0-8.0) Ur Specific Preemption 1.022 (1.001-1.035) Urine Protein 1+ H (Negative) Urine Glucose (UA) Negative (Negative) Urine Ketones Negative (Negative) Urine Blood Negative (Negative) Urine Nitrite Negative (Negative) Urine Bilirubin Negative (Negative) Urine Urobilinogen 4.0 (<2.0) mg/dL Ur Leukocyte Esterase Negative (Negative) Urine RBC 4 (0-5) /hpf Urine WBC 1 (0-5) /hpf Ur Squamous Epith Cells <1 (0-4) /hpf Urine Mucus Moderate H (None) /hpf Disposition Clinical Impression: Adjustment reaction, Dysuria, Enlarged testicle Disposition: HOME SELF-CARE Condition: Good Instructions (If sedation given, give patient instructions): Dysuria (ED) Additional Instructions: Patient is advised to follow-up with primary care physician. Patient should return to the emergency department if any alarming signs or symptoms occur. Is patient prescribed a controlled substance at d/c from ED?: No Referrals: Tj Barrientos MD [Primary Care Provider] - 1-2 days Marcos Machado MD [STAFF PHYSICIAN] - 1-2 days Time of Disposition: 23:12
--- NOTE | 2018-12-04 20:43 | XR ---
Abdomen single view. 2 views upright were obtained. History abdominal pain. Comparison none. FINDINGS: Bowel gas pattern is normal. There is no sign of intestinal obstruction or pneumoperitoneum. Fecal pa ttern is normal. There are no pathologic calcifications over the kidneys. Lung bases are clear. IMPRESSION: Nonacute abdomen.
[2018-12-04 20:56] LABS: Appearance,Urine Clear (Clear); Bilirubin,Urine Negative (Negative); Blood,Urine Negative (Negative); Color,Urine Yellow; Glucose,Urine (UA) Negative (Negative); Ketones,Urine Negative (Negative); Leukocyte Esterase,Urine Negative (Negative); Mucus,Urine Moderate /hpf; Nitrite,Urine Negative (Negative); Protein,Urine 1+ (Negative); RBC,Urine 4 /hpf (0-5); Specific Gravity,Urine 1.022 (1.001-1.035); Squamous Epithelial Cell,Urine <1 /hpf (0-4); WBC,Urine 1 /hpf (0-5)
[2018-12-04] MEDS ORDERED: cefTRIAXone 250 MG VIAL IM STA (21:17)
[2018-12-04] MEDS ORDERED: AZITHROMYCIN 500 MG TAB PO STA (21:18)
--- NOTE | 2018-12-04 23:02 | US ---
ADDENDUM - Added by Luda Cardenas M.D. on 12/04/2018 11:02 PM (-08:00) Correction: The left testicle measures 3.6 x 1.9 x 5.1 cm. EXAM: US Scrotum CLINICAL HISTORY: ITS.REASON US Reason: Pain TECHNIQUE: Real-time ultrasound of the scrotum with color Doppler and image documentation. COMPARISON: No relevant prior studies available. FINDINGS: Right testicle: The right testicle measures 3.7 x 1.9 x 4.4 cm. Testicular flow visualized. Lobulated right testicle. Left testicle: The left testicle measures 2.6 x 1.9 x 5.1 cm. Testicular flow visualized. Epididymides: Unremarkable as visualized. Scrotum: Small 5 mm cystic structure superior to the right testicle of indeterminate etiology. IMPRESSION: 1. Lobulated right testicle. Slightly larger left testicle. Bilateral testicular flow visualized. 2. Small 5 mm cystic structure superior to the right testicle of indeterminate etiology.
[2018-12-04] MEDS ORDERED: IBUPROFEN 600 MG TAB PO STA (23:13)
[2018-12-05 01:06] VITALS: BP 121/70; PULSE 70; RESP 16
[2018-12-05 14:08] LABS: C. trachomatis,PCR Negative (Neg,Equiv); Chlamydia trachomatis Source Urine; N. gonorrhoeae,PCR Negative (Neg,Equiv); Neisseria Source Urine
== END 2018-12-05 00:10 | disposition home or self-care (01) ==
LOC: EC 17:51
DX: N44.8 Other noninflammatory disorders of the testis (principal); R30.0 Dysuria; F43.20 Adjustment disorder, unspecified; M54.9 Dorsalgia, unspecified; F31.9 Bipolar disorder, unspecified; F41.9 Anxiety disorder, unspecified; Z79.899 Other long term (current) drug therapy; Z53.29 Procedure and treatment not carried out because of patient's decision for other reasons; Z59.0 Homelessness
CPT/HCPCS: 74018; 76870; 81001; 87491; 87591; 93975; 99285

== ENCOUNTER 2018-12-16 19:35 | Emergency (ER) | payer MEDICARE, OTHER ==
--- NOTE | 2018-12-16 21:01 | ED ---
Psych HPI - General Source: patient, RN notes reviewed Mode of arrival: ambulatory Limitations: no limitations <Quinn Almanza - Last Filed: 12/16/18 23:22> <Caren Keller - Last Filed: 12/17/18 08:05> - General Chief Complaint: Psychiatric Symptoms Stated Complaint: Petition Time Seen by Provider: 12/16/18 20:11 - History of Present Illness Initial Comments: 28-year-old male presents emergency Department with police for psychiatric evaluation. Patient is petition. Patient denies being suicidal or homicidal. Patient is unable to care for himself. Patient is distorted. He denies any physical complaints. Patient states she's been admitted several times in psychiatric facilities. (uQinn Almanza) - Related Data Home Medications Medication Instructions Recorded Confirmed Atorvastatin [Lipitor] 20 mg PO DAILY 09/04/18 12/16/18 Lisinopril [Zestril] 10 mg PO DAILY 09/04/18 12/16/18 Pramipexole [Mirapex] 1 mg PO HS 10/04/18 12/16/18 Divalproex Sodium 250 mg PO TID 12/01/18 12/16/18 Famotidine [Pepcid] 20 mg PO DAILY 12/01/18 12/16/18 risperiDONE [RisperDAL] 1 mg PO QAM 12/01/18 12/16/18 risperiDONE [RisperDAL] 2 mg PO HS 12/16/18 12/16/18 Previous Rx's Medication Instructions Recorded FLUoxetine HCL 40 mg PO DAILY #30 capsule 09/08/18 Allergies Allergy/AdvReac Type Severity Reaction Status Date / Time No Known Allergies Allergy Verified 12/16/18 21:00 Review of Systems ROS Other: All systems not noted in ROS Statement are negative. <Quinn Almanza - Last Filed: 12/16/18 23:22> ROS Other: All systems not noted in ROS Statement are negative. <Caren Keller - Last Filed: 12/17/18 08:05> ROS Statement: Those systems with pertinent positive or pertinent negative responses have been documented in the HPI. Past Medical History Past Medical History: Diabetes Mellitus History of Any Multi-Drug Resistant Organisms: None Reported Past Surgical History: No Surgical Hx Reported Past Psychological History: Anxiety, Bipolar, Depression Smoking Status: Never smoker Past Alcohol Use History: None Reported Past Drug Use History: None Reported <Quinn Almanza - Last Filed: 12/16/18 23:22> General Exam Limitations: no limitations General appearance: alert, in no apparent distress, anxious Head exam: Present: atraumatic, normocephalic, normal inspection Eye exam: Present: normal appearance, PERRL, EOMI. Absent: scleral icterus, conjunctival injection, periorbital swelling ENT exam: Present: normal exam, normal oropharynx, mucous membranes moist Neck exam: Present: normal inspection. Absent: tenderness, meningismus, lymphadenopathy Respiratory exam: Present: normal lung sounds bilaterally. Absent: respiratory distress, wheezes, rales, rhonchi, stridor Cardiovascular Exam: Present: regular rate, normal rhythm, normal heart sounds. Absent: systolic murmur, diastolic murmur, rubs, gallop, clicks GI/Abdominal exam: Present: soft, normal bowel sounds. Absent: distended, tenderness, guarding, rebound, rigid Neurological exam: Present: alert, oriented X3, CN II-XII intact Psychiatric exam: Present: agitated Skin exam: Present: warm, dry, intact, normal color. Absent: rash <Quinn Almanza - Last Filed: 12/16/18 23:22> Vital Signs 12/16/18 12/16/18 19:41 23:50 Temperature 98.2 F 98.1 F Pulse Rate 107 H 99 Respiratory 16 18 Rate Blood Pressure 128/86 131/80 O2 Sat by Pulse 97 99 Oximetry Medical Decision Making <Quinn Almanza - Last Filed: 12/16/18 23:22> <Caren Keller - Last Filed: 12/17/18 08:05> - Medical Decision Making 28-year-old male present emergency from for psychiatric evaluation. Patient was evaluated by EPS and case discussed with on-call psychiatrist recommends the patient to be discharged. (Quinn Almanza) I was available for consultation in the emergency department. The history and physical exam were done by the Midlevel Provider. Medical decision making was done by the Midlevel Provider. The Midlevel Provider did not contact me for this patient's care. I was not directly involved in this patient's care. (Caren Keller) Disposition Is patient prescribed a controlled substance at d/c from ED?: No <Quinn Almanza M - Last Filed: 12/16/18 23:22> <Caren Keller P - Last Filed: 12/17/18 08:05> Clinical Impression: Cognitive impairment, Adjustment reaction, Depression Disposition: HOME SELF-CARE Condition: Stable Instructions (If sedation given, give patient instructions): Depression (ED) Additional Instructions: Please return to the Emergency Department if symptoms worsen or any other concerns. Referrals: Tj Barrientos MD [Primary Care Provider] - 1-2 days
[2018-12-16 23:52] VITALS: BP 131/80; PULSE 99; RESP 18; TEMP 98.1
== END 2018-12-16 23:50 | disposition home or self-care (01) ==
LOC: EC 19:35
DX: G31.84 Mild cognitive impairment of uncertain or unknown etiology (principal); F43.20 Adjustment disorder, unspecified; F31.9 Bipolar disorder, unspecified; F41.9 Anxiety disorder, unspecified; Z79.899 Other long term (current) drug therapy
CPT/HCPCS: 82075; 99284

== ENCOUNTER 2018-12-19 11:56 | Emergency (ER) | payer MEDICARE, OTHER ==
[2018-12-19 12:33] VITALS: TEMP 97.5
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
[2018-12-19] MEDS: AZITHROMYCIN 500 MG TAB PO STA (14:06)
[2018-12-19] MEDS: cefTRIAXone 250 MG VIAL IM STA (14:07)
--- NOTE | 2018-12-19 14:16 | US ---
EXAMINATION TYPE: US scrotum with doppler. Grayscale and color Doppler Duplex imaging performed of becka renner scrotum. DATE OF EXAM: 12/19/2018 COMPARISON: 12/04/2018 CLINICAL HISTORY: Pain. EXAM MEASUREMENTS: TESTICLES: Right Testicle: 4.6 x 1.9 x 3.1 cm Left Testicle: 5.5 x 2.6 x 3.2 cm EPIDIDYMIS HEAD: Right Epididymis: 0.7 cm Left Epididymis: 0.7 cm Doppler performed to assess for testicular vascularity; good bilateral color flow and waveforms are s een. There is no evidence of testicular torsion. Presence of hydroceles: no Presence of varicoceles: no Previous cystic area noted at only 3mm on today's study. IMPRESSION: 1. Small cystic structure superior to the right testicle to small to characterize measures only 3 mm on today's exam and could be followed on a short-term basis. 2. Flow is documented to both testes.
[2018-12-19 14:21] LABS: Appearance,Urine Clear (Clear); Bilirubin,Urine Negative (Negative); Blood,Urine Negative (Negative); Color,Urine Light Yellow; Glucose,Urine (UA) Negative (Negative); Ketones,Urine Negative (Negative); Leukocyte Esterase,Urine Negative (Negative); Nitrite,Urine Negative (Negative); Protein,Urine Negative (Negative); Specific Gravity,Urine 1.006 (1.001-1.035); Urobilinogen,Urine <2.0 mg/dL (<2.0)
[2018-12-19 14:57] VITALS: RESP 14
[2018-12-19 14:58] VITALS: BP 131/84; PULSE 92
[2018-12-20 15:33] LABS: N. gonorrhoeae,PCR Negative (Neg,Equiv); Neisseria Source Urine
[2018-12-20 15:34] LABS: C. trachomatis,PCR Negative (Neg,Equiv); Chlamydia trachomatis Source Urine
== END 2018-12-19 14:59 | disposition home or self-care (01) ==
LOC: EC 11:56
DX: N50.812 Left testicular pain (principal); N50.811 Right testicular pain; R30.0 Dysuria; E11.9 Type 2 diabetes mellitus without complications; F31.9 Bipolar disorder, unspecified; F41.9 Anxiety disorder, unspecified; Z79.84 Long term (current) use of oral hypoglycemic drugs; Z79.899 Other long term (current) drug therapy
CPT/HCPCS: 81003; 87491; 87591; 93975; 76870; 99285; 96372; J0696

== ENCOUNTER 2018-12-19 17:52 | Inpatient (IN) | payer MEDICARE, MEDICAID ==
--- NOTE | 2018-12-19 18:58 | ED ---
Psych HPI - General Source: patient Mode of arrival: ambulatory <Debbie Tinsley - Last Filed: 12/19/18 20:19> <Taz Mckeon - Last Filed: 12/19/18 20:31> - General Chief Complaint: Psychiatric Symptoms Stated Complaint: Mental Health Time Seen by Provider: 12/19/18 17:54 - History of Present Illness Initial Comments: 28-year-old male presenting today for chief complaint of "ordered petition. Patient states he is homeless, he states he often is not able to get his counseling appointments or metastatic lesion administered by [facility]. [facility] have his medication list available. Patient denies any homicidal or suicidal ideation. Patient denied any auditory or visual hallucination. Patient states he feels fine, he states he was brought into the emergency department by police because of a court ordered petition for missing medication dosing and counseling appointments. Upon arrival patient is compliant, he appears well no signs of agitation or aggression. Patient denies any complaints at this time, patient denies any recent fever, chills, shortness of breath, chest pain, back pain, abdominal pain , nausea or vomiting, numbness or tingling, dysuria or hematuria, constipation or diarrhea, headaches or visual changes, or any other complaints. Upon arrival pt diastolic BP mildly elevated. (Debbie Tinsley) - Related Data Home Medications Medication Instructions Recorded Confirmed Atorvastatin [Lipitor] 20 mg PO DAILY 09/04/18 12/19/18 Lisinopril [Zestril] 10 mg PO DAILY 09/04/18 12/19/18 risperiDONE [RisperDAL] 1 mg PO DAILY 12/01/18 12/19/18 risperiDONE [RisperDAL] 2 mg PO HS 12/16/18 12/19/18 Divalproex [Depakote] 250 mg PO TID 12/19/18 12/19/18 FLUoxetine HCL [PROzac] 40 mg PO DAILY 12/19/18 12/19/18 Famotidine [Pepcid] 20 mg PO DAILY 12/19/18 12/19/18 Pramipexole [Mirapex] 1 mg PO HS 12/19/18 12/19/18 Allergies Allergy/AdvReac Type Severity Reaction Status Date / Time No Known Allergies Allergy Verified 03/01/19 18:39 Review of Systems ROS Other: All systems not noted in ROS Statement are negative. <Debbie Tinsley - Last Filed: 12/19/18 20:19> ROS Other: All systems not noted in ROS Statement are negative. <Taz Mckeon - Last Filed: 12/19/18 20:31> ROS Statement: Those systems with pertinent positive or pertinent negative responses have been documented in the HPI. Past Medical History Past Medical History: Diabetes Mellitus History of Any Multi-Drug Resistant Organisms: None Reported Past Surgical History: No Surgical Hx Reported Past Psychological History: Anxiety, Bipolar, Depression Smoking Status: Never smoker Past Alcohol Use History: None Reported Past Drug Use History: None Reported <Debbie Tinsley - Last Filed: 12/19/18 20:19> General Exam Limitations: no limitations <Debbie Tinsley - Last Filed: 12/19/18 20:19> <Taz Mckeon - Last Filed: 12/19/18 20:31> - General Exam Comments Initial Comments: General: The patient is awake and alert, in no distress, and does not appear acutely ill. Eye: Pupils are equal, round and reactive to light, extra-ocular movements are intact. No nystagmus. There is normal conjunctiva bilaterally. No signs of icterus. Ears, nose, mouth and throat: There are moist mucous membranes and no oral lesions. Neck: The neck is supple, there is no tenderness or JVD. Cardiovascular: There is a regular rate and rhythm. No murmur, rub or gallop is appreciated. Respiratory: Lungs are clear to auscultation, respirations are non-labored, breath sounds are equal. No wheezes, stridor, rales, or rhonchi. Gastrointestinal: Soft, non-distended, non-tender abdomen without masses or organomegaly noted. There is no rebound or guarding present. No CVA tenderness. Bowel sounds are unremarkable. Musculoskeletal: Normal ROM, no tenderness. Strength 5/5. Sensation intact. Pulses equal bilaterally 2+. Neurological: A&O x 3. CN II-XII intact, There are no obvious motor or sensory deficits. Coordination appears grossly intact. Speech is normal. Skin: Skin is warm and dry and no rashes or lesions are noted. Psychiatric: Cooperative, appropriate mood & affect, normal judgment. (Debbie Tinsley) Course <Debbie Tinlsey - Last Filed: 12/19/18 20:19> <Taz Mckeon - Last Filed: 12/19/18 20:31> Vital Signs 12/19/18 18:01 Temperature 98.1 F Pulse Rate 97 Respiratory 18 Rate Blood Pressure 134/92 O2 Sat by Pulse 97 Oximetry - Reevaluation(s) Reevaluation #1: 12/19/18 20:30 A supervision: I personally did a reevaluation the patient I did fill out a physician certification. Patient does demonstrate features of schizoaffective disorder consistent with his previous history. He has been noncompliant with his medication. He is here in a pickup order. (Taz Mckeon) Medical Decision Making <Debbie Tinsley - Last Filed: 12/19/18 20:19> <Taz Mckeon - Last Filed: 12/19/18 20:31> - Medical Decision Making Upon arrival patient has no complaints. Patient brought in for coronary petition for medication compliance as well as counseling appointment. Patient is homeless has difficulty with getting rides to the appointments. Pt missionary has current medications to distribute-per patient. Pt has no (+) ROS. Homicidal or suicidal ideation. No complaints of auditory or visual hallucination. Patient medically cleared for EPS evaluation. (Debbie Tinsley) Disposition <Debbie Tinsley - Last Filed: 12/19/18 20:19> <Taz Mckeon - Last Filed: 12/19/18 20:31> Clinical Impression: Schizoaffective disorder Disposition: TRANSFER TO PSYCH HOSP/UNIT Condition: Serious
[2018-12-19] MEDS ORDERED: MAG HYDROX/AL HYDROX/SIMETH 30 ML CUP PO PRN (20:15)
[2018-12-19] MEDS ORDERED: ZIPRASIDONE 20 MG VIAL IM PRN (20:15)
[2018-12-19] MEDS ORDERED: MAGNESIUM HYDROXIDE 2,400 MG/10 ML CUP PO PRN (20:15)
[2018-12-19] MEDS ORDERED: ACETAMINOPHEN TAB 325 MG TAB PO PRN (20:15)
[2018-12-19] MEDS: LORazepam 1 MG TAB PO PRN (21:19)
[2018-12-19] MEDS ORDERED: LORazepam 2 MG/ML INJ IM PRN (22:31)
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
[2018-12-20] MEDS: risperiDONE ODT 1 MG TAB PO SCH ×2 (13:06→21:46)
[2018-12-20 13:51] LABS: Glucose,Whole Blood 140 mg/dL (75-99)
[2018-12-20] MEDS: LORazepam 1 MG TAB PO PRN (21:46)
[2018-12-20] MEDS: DIVALPROEX ER 500 MG TAB.ER.24H PO SCH (21:46)
[2018-12-20] MEDS: AMOXIC-POT CLAV 875-125MG 1 EACH TAB PO SCH (21:46)
[2018-12-20] MEDS: BACITRACIN 500 UNIT/GM OINT 28.4 GM TUBE TOPICAL SCH (21:48)
--- NOTE | 2018-12-20 23:18 | CONS ---
CONSULTATION CHIEF COMPLAINT: A 28-year-old white male admitted to the Psychiatry unit for mood instability by an order petition from his diet assistant. States he [facility] He is not sure where his medications are. He denies any homicidal or suicidal ideations at this time. He states he feels fine and is brought in due to a court order. No nausea, vomiting. PAST MEDICAL HISTORY: He has history hypertension and diabetes mellitus as well as psychiatric illnesses. MEDICATIONS: Home medicines: 1. Lipitor 20 mg daily. 2. Zestril 10 mg daily. 3. Risperdal 2 mg at night and 1 mg in the morning. 4. Depakote 250 t.i.d. 5. Prozac 40 mg daily. 6. Pepcid 20 mg daily. 7. Mirapex 1 mg q.h.s. ALLERGIES: Negative. REVIEW OF SYSTEMS: Fourteen point review of systems negative except for mentioned above. Vital signs appear stable cardiovascular S1, S2. Lungs transmitted upper sounds. Hematology negative Homans. NEUROLOGICAL: Alert and oriented times three. PSYCH: Fair mood and affect. Apparently patient is homeless. Difficulty getting him to rise and we will restart his blood pressure medication, and diabetes medications. He refused blood work today but we will try to get him to get a blood sugar test today and restart his medications. MMODL / IJN: [id number] /
[2018-12-21] MEDS: metFORMIN 500 MG TAB PO SCH ×2 (09:09→17:38)
[2018-12-21] MEDS: LISINOPRIL 10 MG TAB PO SCH (09:11)
[2018-12-21] MEDS: ATORVASTATIN 20 MG TAB PO SCH (09:11)
[2018-12-21] MEDS: FAMOTIDINE 20 MG TAB PO SCH (09:11)
[2018-12-21] MEDS: AMOXIC-POT CLAV 875-125MG 1 EACH TAB PO SCH ×2 (09:12→21:05)
[2018-12-21] MEDS: risperiDONE ODT 1 MG TAB PO SCH ×2 (09:12→21:05)
--- NOTE | 2018-12-21 10:36 | P.PN ---
Progress Note - Text Interval history: The patient is found in the hallway he approaches my office to speak. Numerous times he states he wants to be discharged he doesn't belong here and he can't be held. Again I tried to explain reasons that he was admitted. He has poor insight into those reasons. He did comply with the Depakote and Risperdal so far. He has not been attending groups. He has required some redirection but has not demonstrated any aggressive behavior. Again he tolerates the interview for a few moments and then gets up angrily and leaves. Mental status exam: The patient is a tall overweight male appearing his stated age. He has a disheveled appearance he is dressed in hospital gowns. He has an intellectual disability. He describes his mood as being frustrated and his affect is irritable. He is quite perseverative. He reports no thoughts of harming himself or others he reports no auditory or visual hallucinations. Again he is trying to facilitate a discharge. He frequently changes position while seated in his chair but demonstrates no involuntary repetitive movements. Other than some derogatory comments he demonstrates no verbal or physical aggressiveness towards me. Plan: The patient will continue on his current psychotropic medication. We will get a medication list from [facility] tomorrow. We will monitor him for safety. Vital signs reviewed.
[2018-12-21] MEDS: BACITRACIN 500 UNIT/GM OINT 28.4 GM TUBE TOPICAL SCH ×2 (13:23→21:05)
[2018-12-21] MEDS: LORazepam 1 MG TAB PO PRN (21:05)
[2018-12-21] MEDS: DIVALPROEX ER 500 MG TAB.ER.24H PO SCH (21:05)
[2018-12-22] MEDS: FAMOTIDINE 20 MG TAB PO SCH (08:23)
[2018-12-22] MEDS: LISINOPRIL 10 MG TAB PO SCH (08:23)
[2018-12-22] MEDS: metFORMIN 500 MG TAB PO SCH ×2 (08:23→17:04)
[2018-12-22] MEDS: ATORVASTATIN 20 MG TAB PO SCH (08:23)
[2018-12-22] MEDS: AMOXIC-POT CLAV 875-125MG 1 EACH TAB PO SCH ×2 (08:24→20:15)
[2018-12-22] MEDS: risperiDONE ODT 1 MG TAB PO SCH (08:24)
[2018-12-22] MEDS: BACITRACIN 500 UNIT/GM OINT 28.4 GM TUBE TOPICAL SCH ×2 (08:25→20:48)
--- NOTE | 2018-12-22 10:56 | P.PN ---
Progress Note - Text Interval history: The patient is found in the hallway he follows me to an interview room. I was informed that's a financial services sales representative from [place] will be coming out to meet with the patient to see if he is suitable for placement at their facility. The patient did sleep throughout the night appetite stable. He has been compliant with medication. He was calm her today during our interaction. He continues to verbalize several times he wants to be discharged but was able to receive input that we are trying to arrange housing and that he needs to participate in a deferral conference. Staff report no aggressive behavior. He can be intrusive and he has been knocking on doors throughout the unit. Mental status exam: The patient is an obese male he is disheveled dressed in hospital gowns. He has a history of intellectual disability in his thinking is concrete. He continues to perseverate. He maintained a normal tone of voice he was much less irritable today. He was argumentative but remained calm. He lacks insight as to why he was admitted. Again he denies having any acute safety symptoms such as suicidal or homicidal thoughts. He is endorsing no auditory or visual any since. Insight and judgment are chronically impaired. He demonstrates no verbal or physical aggressiveness today no involuntary repetitive movements. Plan: The patient will continue on his current psychotropic medications however I will titrate the Risperdal to 1 mg in the morning 2 mg at bedtime. We are still trying to obtain a recent medication review notes from his last prescribing psychiatrist. It appears he was on and they assist on in the past and this was discontinued for unknown reasons. We will continue to monitor him for safety. He is encouraged to appropriately participate in the milieu. Vital signs reviewed. We will await the results of his deferral conference.
[2018-12-22] MEDS: risperiDONE ODT 2 MG TAB PO SCH (20:16)
[2018-12-22] MEDS: DIVALPROEX ER 500 MG TAB.ER.24H PO SCH (20:16)
[2018-12-22] MEDS: LORazepam 1 MG TAB PO PRN (20:17)
[2018-12-23] MEDS: ATORVASTATIN 20 MG TAB PO SCH (08:07)
[2018-12-23] MEDS: risperiDONE ODT 1 MG TAB PO SCH (08:07)
[2018-12-23] MEDS: metFORMIN 500 MG TAB PO SCH ×2 (08:07→17:23)
[2018-12-23] MEDS: FAMOTIDINE 20 MG TAB PO SCH (08:07)
[2018-12-23] MEDS: LISINOPRIL 10 MG TAB PO SCH (08:07)
[2018-12-23] MEDS: AMOXIC-POT CLAV 875-125MG 1 EACH TAB PO SCH ×2 (08:08→20:13)
[2018-12-23] MEDS: BACITRACIN 500 UNIT/GM OINT 28.4 GM TUBE TOPICAL SCH ×2 (08:08→20:13)
--- NOTE | 2018-12-23 09:34 | P.PN ---
Progress Note - Text Interval history: The patient is found in the hallway he follows me to an interview room. I did receive the [facility] He does confirm that the patient was last on Depakote Prozac and Risperdal. The patient continues to state he would like to be discharged. He did participate in a placement meeting yesterday and it appears there explore options. He does have his deferral conference today at noon. There've been no reports of behavioral disturbance. The patient he keeps he sleeping and eating. He has been compliant with medication. Mental status exam: The patient is an obese tall male appearing his stated age she has a disheveled appearance he is dressed in hospital gowns. He seated in his chair calmly. He reports no thoughts of harming himself or others. He is endorsing no auditory or visual hallucinations. He continues to repeat that he would like to be discharged and doesn't need to be held here. Insight and judgment chronically impaired. He does have a history of intellectual disability. He demonstrates no verbal or physical aggressiveness. We are able to conclude the session without him becoming irritable. Plan: The patient will continue on his current psychotropic medication. We will await the outcome of his deferral conference as well as the placement meeting which occurred yesterday. Vital signs reviewed. We will monitor him for safety. He is encouraged to continue participating in the milieu appropriately.
[2018-12-23] MEDS: risperiDONE ODT 2 MG TAB PO SCH (20:11)
[2018-12-23] MEDS: DIVALPROEX ER 500 MG TAB.ER.24H PO SCH (20:13)
[2018-12-23 23:16] LABS: Appearance,Urine Clear (Clear); Bilirubin,Urine Negative (Negative); Blood,Urine Negative (Negative); Color,Urine Yellow; Glucose,Urine (UA) Negative (Negative); Ketones,Urine Trace (Negative); Leukocyte Esterase,Urine Negative (Negative); Nitrite,Urine Negative (Negative); PH, Urine 6.5 (5.0-8.0); Protein,Urine Trace (Negative); Specific Gravity,Urine 1.023 (1.001-1.035)
[2018-12-23 23:31] LABS: Amphetamine Screen,Urine Not Detected (NotDetected); Barbiturate Screen,Urine Not Detected (NotDetected); Benzodiazepines Screen,Urine Detected (NotDetected); Cocaine Screen,Urine Not Detected (NotDetected); Methadone Screen, Urine Not Detected (NotDetected); Opiate Screen,Urine Not Detected (NotDetected); Oxycodone Screen, Urine Not Detected (NotDetected); Phencyclidine Screen,Urine Not Detected (NotDetected); Tricyclic Antidepressant,Urine Not Detected (NotDetected); Urn Cannabinoid Scrn Not Detected (NotDetected)
[2018-12-24] MEDS: LISINOPRIL 10 MG TAB PO SCH (09:46)
[2018-12-24] MEDS: metFORMIN 500 MG TAB PO SCH ×2 (09:46→17:14)
[2018-12-24] MEDS: ATORVASTATIN 20 MG TAB PO SCH (09:47)
[2018-12-24] MEDS: AMOXIC-POT CLAV 875-125MG 1 EACH TAB PO SCH ×2 (09:47→20:13)
[2018-12-24] MEDS: FAMOTIDINE 20 MG TAB PO SCH (09:49)
[2018-12-24] MEDS: risperiDONE ODT 1 MG TAB PO SCH (09:50)
[2018-12-24] MEDS: BACITRACIN 500 UNIT/GM OINT 28.4 GM TUBE TOPICAL SCH ×2 (09:53→20:20)
[2018-12-24 10:09] LABS: Valproic Acid (Depakene) 88.9 ug/mL
--- NOTE | 2018-12-24 14:36 | P.PN ---
Progress Note - Text Interval history: The patient is found in the hallway he follows me to an interview room. He reports his moods are okay but he continues to be frustrated that he has not yet been discharge. His Depakote level came back at 88.9. Overall his behavior has improved. He is less irritable and less impulsive. He is more easily directed. We are awaiting input from his guardian regarding placement. Appetite stable he has been sleeping throughout the night. Mental status exam: The patient is an obese male appearing his stated age. He has just finished eating he is dressed in hospital gowns and he has food stains on his gown. His hair is uncombed and has a disheveled appearance. Eye contact is intermittent. He seated calmly in the chair. He again expresses he wants to be discharged. He demonstrates no verbal or physical aggressiveness and he was not irritable during our session. He is reporting no suicidal or homicidal ideation intent or plan. He is reporting no auditory or visual hallucinations or any specific delusions. There is no observed evidence of psychosis. He does not appear hypomanic or manic. Chronically he is known to have an intellectual disability. Insight and judgment mildly improved. Plan: The patient will continue on his current psychotropic medications. They appear to be providing clinical benefit. He has been able to control his behavior better. We are awaiting placement for him as directed by his guardian. We will monitor him for safety and encourage participation in the milieu. Vital signs reviewed.
[2018-12-24] MEDS: LORazepam 1 MG TAB PO PRN (20:13)
[2018-12-24] MEDS: risperiDONE ODT 2 MG TAB PO SCH (20:13)
[2018-12-24] MEDS: DIVALPROEX ER 500 MG TAB.ER.24H PO SCH (20:13)
[2018-12-25] MEDS: LISINOPRIL 10 MG TAB PO SCH (09:02)
[2018-12-25] MEDS: metFORMIN 500 MG TAB PO SCH ×2 (09:02→17:03)
[2018-12-25] MEDS: FAMOTIDINE 20 MG TAB PO SCH (09:02)
[2018-12-25] MEDS: ATORVASTATIN 20 MG TAB PO SCH (09:02)
[2018-12-25] MEDS: AMOXIC-POT CLAV 875-125MG 1 EACH TAB PO SCH ×2 (09:03→20:25)
[2018-12-25] MEDS: BACITRACIN 500 UNIT/GM OINT 28.4 GM TUBE TOPICAL SCH ×2 (09:04→20:54)
[2018-12-25] MEDS: risperiDONE ODT 1 MG TAB PO SCH (09:05)
--- NOTE | 2018-12-25 12:03 | P.PN ---
Progress Note - Text Interval history: The patient is found in group he follows me to an interview room. He indicates his mood is good. Staff report that he is been doing much better at controlling his behavior has been much less impulsive activity. He has not been intrusive and is not knocking on office doors repetitively throughout the day. He has no questions or concerns regarding his medication. He does continue to assert that he wants to be discharged. Social work is informed me that placement has not yet been identified by his guardian. Mental status exam: The patient is an overweight male appearing his stated age. He has an overgrown suero his hairs overgrown he is disheveled. Hygiene adequate. Eye contact is intermittent. He is seated calmly in the chair until we concluded the session. He reports no suicidal or homicidal ideation intent or plan. He demonstrates no irritability or aggressiveness. Thought process is linear he demonstrates no tangential thinking loose associations or flight of ideas. Insight and judgment improving. Chronically he has an intellectual disability. He reports no auditory or visual hallucinations or any specific delusions. Plan: The patient will continue on his current psychotropic medication. He has demonstrated clinical improvement during the course of his hospitalization. We are awaiting appropriate placement. Vital signs reviewed. We will continue to monitor him for safety.
[2018-12-25] MEDS: LORazepam 1 MG TAB PO PRN (20:25)
[2018-12-25] MEDS: DIVALPROEX ER 500 MG TAB.ER.24H PO SCH (20:25)
[2018-12-25] MEDS: risperiDONE ODT 2 MG TAB PO SCH (20:25)
[2018-12-26] MEDS: LISINOPRIL 10 MG TAB PO SCH (09:09)
[2018-12-26] MEDS: AMOXIC-POT CLAV 875-125MG 1 EACH TAB PO SCH ×2 (09:09→20:17)
[2018-12-26] MEDS: risperiDONE ODT 1 MG TAB PO SCH (09:09)
[2018-12-26] MEDS: FAMOTIDINE 20 MG TAB PO SCH (09:09)
[2018-12-26] MEDS: ATORVASTATIN 20 MG TAB PO SCH (09:09)
[2018-12-26] MEDS: metFORMIN 500 MG TAB PO SCH ×2 (09:10→17:02)
[2018-12-26] MEDS: LOPERAMIDE 2 MG CAP PO PRN ×2 (09:11→18:33)
[2018-12-26] MEDS: BACITRACIN 500 UNIT/GM OINT 28.4 GM TUBE TOPICAL SCH ×2 (09:15→20:18)
--- NOTE | 2018-12-26 14:49 | P.PN ---
Progress Note - Text Interval history: The patient is found in his room. He is sleeping he is verbally arousable. He indicates he has no questions or concerns. He has approached me several times today with brief questions as well. Social work and for me that's begin has no suitable beds for him at this time and that another facility will be interviewing the patient Saturday. Staff report that the patient's been redirectable. He remains compliant with his medication. He again verbalizes a desire to be discharged. Mental status exam: The patient is an overweight male he is dressed in hospital gowns he has a disheveled appearance. Eye contact is adequate throughout the day speech has been fluent spontaneous nonpressured. He reports no thoughts of self-harm or harm to others he is endorsing no auditory or visual hallucinations or any specific delusions. He does not appear to be psychotic he is not hypomanic or manic. He does have a chronic intellectual disability. He demonstrates no verbal or physical aggressiveness. Insight and judgment have improved. Plan: The patient has demonstrated clinical improvement while here. We are awaiting appropriate placement for him. He will continue on his current psychotropic medications as written. Vital signs reviewed.
[2018-12-26] MEDS: LORazepam 1 MG TAB PO PRN (18:33)
[2018-12-26] MEDS: risperiDONE ODT 2 MG TAB PO SCH (20:17)
[2018-12-26] MEDS: DIVALPROEX ER 500 MG TAB.ER.24H PO SCH (20:18)
[2018-12-27] MEDS: metFORMIN 500 MG TAB PO SCH ×2 (09:21→17:31)
[2018-12-27] MEDS: AMOXIC-POT CLAV 875-125MG 1 EACH TAB PO SCH ×2 (09:22→19:44)
[2018-12-27] MEDS: FAMOTIDINE 20 MG TAB PO SCH (09:22)
[2018-12-27] MEDS: ATORVASTATIN 20 MG TAB PO SCH (09:22)
[2018-12-27] MEDS: BACITRACIN 500 UNIT/GM OINT 28.4 GM TUBE TOPICAL SCH ×2 (09:22→19:44)
[2018-12-27] MEDS: risperiDONE ODT 1 MG TAB PO SCH (09:23)
[2018-12-27] MEDS: LISINOPRIL 10 MG TAB PO SCH (09:23)
--- NOTE | 2018-12-27 11:41 | P.PN ---
Progress Note - Text Progress Note Date: 12/27/18 Interval history: Patient seen in [facility] today. He reports he slept well through the night. He does not voice any adverse psychotropic medication side effects. He inquires regarding plans for discharge. Mental status exam: He is alert and cooperative with the interview. He was found in his room lying in bed. He was cooperative to come to the interview room. He does not show any agitation. He describes his mood is doing pretty good. His affect is restricted. He does not report any hallucinations and denies any thoughts of harm to self or others. His answers to questions are brief. Plan: Patient will be maintained on current psychotropic medication regimen. Continue to monitor for any medication side effects and monitor his ongoing response to treatment. We'll continue to cover this patient to the weekend.
[2018-12-27] MEDS: DIVALPROEX ER 500 MG TAB.ER.24H PO SCH (19:44)
[2018-12-27] MEDS: LORazepam 1 MG TAB PO PRN (19:44)
[2018-12-27] MEDS: risperiDONE ODT 2 MG TAB PO SCH (19:44)
[2018-12-27] MEDS: LOPERAMIDE 2 MG CAP PO PRN (20:17)
[2018-12-28] MEDS: metFORMIN 500 MG TAB PO SCH ×2 (08:21→17:08)
[2018-12-28] MEDS: LISINOPRIL 10 MG TAB PO SCH (08:22)
[2018-12-28] MEDS: FAMOTIDINE 20 MG TAB PO SCH (08:22)
[2018-12-28] MEDS: ATORVASTATIN 20 MG TAB PO SCH (08:22)
[2018-12-28] MEDS: risperiDONE ODT 1 MG TAB PO SCH (08:22)
[2018-12-28] MEDS: BACITRACIN 500 UNIT/GM OINT 28.4 GM TUBE TOPICAL SCH ×2 (08:22→20:11)
[2018-12-28] MEDS: LOPERAMIDE 2 MG CAP PO PRN (08:42)
--- NOTE | 2018-12-28 15:44 | P.PN ---
Progress Note - Text Progress Note Date: 12/28/18 Interval history: Patient seen in [facility] today. Reports that he slept last night and he is eating well. He does make reference to wanting to be low to be discharged. He does not voice any adverse psychotropic medication side effects. He does relate that he has not been attending groups. Mental status exam: He is alert and cooperative with the interview. His answers are very brief. His mood seems stable compared to yesterday and he denies any thoughts of harm to self or others. He does not report any hallucinations and does not verbalize any jorge delusional thoughts. He does not show any agitation. His affect is restricted. Plan: Patient be maintained on current psychotropic medication regimen. We will monitor for any medication side effects and monitor his ongoing response to treatment.
[2018-12-28] MEDS: DIVALPROEX ER 500 MG TAB.ER.24H PO SCH (20:11)
[2018-12-28] MEDS: risperiDONE ODT 2 MG TAB PO SCH (20:11)
[2018-12-28] MEDS: LORazepam 1 MG TAB PO PRN (23:41)
[2018-12-29] MEDS: LISINOPRIL 10 MG TAB PO SCH (08:44)
[2018-12-29] MEDS: risperiDONE ODT 1 MG TAB PO SCH ×2 (08:44→19:57)
[2018-12-29] MEDS: FAMOTIDINE 20 MG TAB PO SCH (08:45)
[2018-12-29] MEDS: ATORVASTATIN 20 MG TAB PO SCH (08:45)
[2018-12-29] MEDS: LOPERAMIDE 2 MG CAP PO PRN ×2 (08:45→20:44)
[2018-12-29] MEDS: metFORMIN 500 MG TAB PO SCH ×2 (08:45→17:26)
[2018-12-29] MEDS: BACITRACIN 500 UNIT/GM OINT 28.4 GM TUBE TOPICAL SCH ×2 (08:48→20:45)
--- NOTE | 2018-12-29 11:39 | P.PN ---
Progress Note - Text Interval history: The patient is found in the [facility]. 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 The patient has no questions regarding his medications. He continues to be focused on a discharge date. He is reassured that we are actively working on a discharge plan. Staff report that the patient's behavior has been appropriate and there have been no behavioral disturbances. Mental status exam: The patient is an overweight male he is dressed in his own clothing hygiene is adequate he has a disheveled appearance. He reports his mood is fine. Again he is focused on being discharged. He is reporting no suicidal or homicidal ideation intent or plan. He endorses no auditory or visua l hallucinations. He is demonstrating no objective signs of psychosis. He demonstrates no verbal or physical aggressiveness. He does not appear hypomanic or manic. He is known to have intellectual disability, thinking is concrete. Plan: The patient will continue on his current psychotropic medication. We are awaiting acceptable placement for him. We will monitor him for safety. Vital signs reviewed.
[2018-12-29] MEDS: DIVALPROEX ER 500 MG TAB.ER.24H PO SCH (19:57)
[2018-12-29] MEDS: LORazepam 1 MG TAB PO PRN (19:58)
[2018-12-29] MEDS: risperiDONE ODT 2 MG TAB PO SCH (20:44)
[2018-12-30] MEDS: LISINOPRIL 10 MG TAB PO SCH (08:54)
[2018-12-30] MEDS: risperiDONE ODT 1 MG TAB PO SCH (08:54)
[2018-12-30] MEDS: metFORMIN 500 MG TAB PO SCH ×2 (08:54→15:55)
[2018-12-30] MEDS: BACITRACIN 500 UNIT/GM OINT 28.4 GM TUBE TOPICAL SCH ×2 (08:54→21:04)
[2018-12-30] MEDS: FAMOTIDINE 20 MG TAB PO SCH (08:55)
[2018-12-30] MEDS: ATORVASTATIN 20 MG TAB PO SCH (08:55)
--- NOTE | 2018-12-30 10:16 | P.PN ---
Progress Note - Text Interval history: The patient is found in his room. He indicates his mood is okay. He has no questions or concerns regarding medication. He is primarily focused on when he will be discharged. There've been no reports of any behavioral disturbance. He tends to not participate in groups. Appetite is stable. Staff recorded he slept 5 hours last night but he does spend time in bed during the day. He did meet with individuals from another facility in terms of placement and we are awaiting input from that meeting. Mental status exam: The patient is an obese male appearing his stated age. He wears a suero his hairs overgrown he has a disheveled appearance. Eye contact is intermittent. Speech is fluent nonspontaneous today. He provides brief answers to questions asked. He is reporting no suicidal or homicidal ideation. Reporting no auditory or visual hallucinations. There is no observed evidence of psychosis. He is doing much better in terms of controlling his behavior has been no impulsivity no aggressiveness. Insight and judgment overall improving. Plan: The patient will continue on his current psychotropic medications. We are awaiting appropriate placement. Social work is in regular contact with the patient's guardian regarding placement. Vital signs reviewed. The patient is not able to be discharged to a lesser level of care until appropriate placement is found.
[2018-12-30] MEDS: LOPERAMIDE 2 MG CAP PO PRN (14:28)
[2018-12-30] MEDS: DIVALPROEX ER 500 MG TAB.ER.24H PO SCH (20:46)
[2018-12-30] MEDS: risperiDONE ODT 2 MG TAB PO SCH (20:47)
[2018-12-30] MEDS: LORazepam 1 MG TAB PO PRN (20:47)
[2018-12-31] MEDS: metFORMIN 500 MG TAB PO SCH ×2 (08:07→17:17)
[2018-12-31] MEDS: risperiDONE ODT 1 MG TAB PO SCH (08:08)
[2018-12-31] MEDS: ATORVASTATIN 20 MG TAB PO SCH (08:08)
[2018-12-31] MEDS: FAMOTIDINE 20 MG TAB PO SCH (08:08)
[2018-12-31] MEDS: LISINOPRIL 10 MG TAB PO SCH (08:08)
[2018-12-31] MEDS: BACITRACIN 500 UNIT/GM OINT 28.4 GM TUBE TOPICAL SCH ×2 (08:09→21:42)
--- NOTE | 2018-12-31 10:08 | P.PN ---
Progress Note - Text Interval history: The patient is found in his room he does not wish to speak in an interview room. He indicates his mood is okay. He expresses some frustrations that he has not yet been discharge. Staff report no behavioral disturbances in the last 24 hours. He remains compliant with his medication. He has been attending meals but not groups. He expresses no concern regarding his psychotropic medication. Mental status exam: The patient is a tall overweight male appearing his stated age he is lying in bed he is alert. He has himself covered with his blanket. Eye contact is poor today. Speech is fluent he provides answers to questions asked. He is reporting no suicidal or homicidal ideation intent or plan. He reports no auditory or visual hallucinations or any specific delusions. He demonstrates no verbal or physical aggressiveness. He demonstrates no involuntary repetitive movements. Insight and judgment have improved during this admission. He has a known diagnosis of intellectual disability. Plan: The patient will continue on his current psychotropic medications. We are awaiting appropriate placement as directed by his guardian. Vital signs reviewed. He is encouraged to participate in the milieu we will continue monitoring him for safety. He requires continued hospitalization until a safe placement is found. If he was discharged elsewhere he would likely decompensate and require rehospitalization.
[2018-12-31] MEDS: LORazepam 1 MG TAB PO PRN ×2 (15:47→22:52)
[2018-12-31] MEDS: LOPERAMIDE 2 MG CAP PO PRN (19:44)
[2018-12-31] MEDS: DIVALPROEX ER 500 MG TAB.ER.24H PO SCH (21:10)
[2018-12-31] MEDS: risperiDONE ODT 2 MG TAB PO SCH (21:10)
[2019-01-01] MEDS: metFORMIN 500 MG TAB PO SCH ×2 (08:28→17:08)
--- NOTE | 2019-01-01 08:41 | P.PN ---
Progress Note - Text Interval history: The patient is found in the hallway he follows me to an interview room. He again is concerned about his discharge plan. We discussed we are still waiting on arrangements and social work remains in contact with his guardian. We did have to restrict his phone privileges as he had been making inappropriate calls. Staff will be dialing for. There is been no reports of behavioral disturbance. The patient has no questions or concerns regarding his psychotropic medication. Mental status exam: The patient is alert he is dressed in his own clothing he has a disheveled appearance. He seated calmly in the chair. He demonstrates no verbal or physical aggressiveness. He reports no suicidal or homicidal ideation intent or plan. He is reporting no auditory or visual hallucinations or any specific delusions. He demonstrates no involuntary repetitive movements. Insight and judgment are chronically limited due to intellectual disability. Overall his behavior has improved significantly during the course of this hospitalization. Plan: The patient will continue on his current psychotropic medications. We con tinue to await appropriate placement for him as directed by his guardian. Vital signs reviewed. He is encouraged participate in the milieu we will continue monitoring him for safety.
[2019-01-01] MEDS: LISINOPRIL 10 MG TAB PO SCH (08:43)
[2019-01-01] MEDS: risperiDONE ODT 1 MG TAB PO SCH (08:43)
[2019-01-01] MEDS: FAMOTIDINE 20 MG TAB PO SCH (08:43)
[2019-01-01] MEDS: ATORVASTATIN 20 MG TAB PO SCH (08:43)
[2019-01-01] MEDS: BACITRACIN 500 UNIT/GM OINT 28.4 GM TUBE TOPICAL SCH ×2 (08:44→20:56)
[2019-01-01 14:09] VITALS: BMI 37.8
[2019-01-01] MEDS: LORazepam 1 MG TAB PO PRN (20:41)
[2019-01-01] MEDS: LOPERAMIDE 2 MG CAP PO PRN (20:41)
[2019-01-01] MEDS: DIVALPROEX ER 500 MG TAB.ER.24H PO SCH (20:42)
[2019-01-01] MEDS: risperiDONE ODT 2 MG TAB PO SCH (20:42)
[2019-01-02 06:53] LABS: Glucose,Whole Blood 104 mg/dL (75-99)
[2019-01-02] MEDS: metFORMIN 500 MG TAB PO SCH ×2 (09:34→17:22)
[2019-01-02] MEDS: risperiDONE ODT 1 MG TAB PO SCH (09:34)
[2019-01-02] MEDS: FAMOTIDINE 20 MG TAB PO SCH (09:34)
[2019-01-02] MEDS: LISINOPRIL 10 MG TAB PO SCH (09:34)
[2019-01-02] MEDS: BACITRACIN 500 UNIT/GM OINT 28.4 GM TUBE TOPICAL SCH ×2 (09:35→20:07)
[2019-01-02] MEDS: ATORVASTATIN 20 MG TAB PO SCH (09:35)
--- NOTE | 2019-01-02 09:36 | P.PN ---
Progress Note - Text Interval history: The patient's found in his room lying in bed. He prefers not to speak in an interview room. He indicates his mood is okay. Again he ask when he will be discharged. He reports no behavioral disturbances the last 24 hours. Staff report no issues. He does continue to attend meals he typically does not attend groups. He indicates that he showered yesterday. He has no questions or concerns regarding his psychotropic medication. He is reporting no thoughts of self-harm or harm to others is endorsing no psychosis. Mental status exam: The patient is an overweight male appearing his stated age. He has a disheveled appearance. He is dressed in hospital gowns. He does make eye contact today he has limited spontaneous speech but does answer questions asked. He reports no suicidal or homicidal ideation intent or plan. He reports no auditory or visual hallucinations or any specific delusions. He does not appear hypomanic or manic. Insight and judgment have improved. He is known to have an intellectual disability. He demonstrates no verbal or physical aggressiveness he demonstrates no involuntary repetitive movements. Plan: The patient will continue on his current psychotropic medications. We are awaiting appropriate placement for him. Social work will keep in contact with the patient's guardian for updates. Patient's vital signs reviewed they're within normal limits. We will continue to monitor him for safety and encourage participation in the milieu.
[2019-01-02] MEDS: DIVALPROEX ER 500 MG TAB.ER.24H PO SCH (20:06)
[2019-01-02] MEDS: LORazepam 1 MG TAB PO PRN (20:06)
[2019-01-02] MEDS: risperiDONE ODT 2 MG TAB PO SCH (20:06)
[2019-01-03] MEDS ORDERED: LORazepam 1 MG TAB PO STA (01:35)
[2019-01-03 06:20] LABS: Glucose,Whole Blood 146 mg/dL (75-99)
[2019-01-03] MEDS: metFORMIN 500 MG TAB PO SCH ×2 (09:10→17:36)
[2019-01-03] MEDS: risperiDONE ODT 1 MG TAB PO SCH (09:11)
[2019-01-03] MEDS: ATORVASTATIN 20 MG TAB PO SCH (09:11)
[2019-01-03] MEDS: LISINOPRIL 10 MG TAB PO SCH (09:11)
[2019-01-03] MEDS: FAMOTIDINE 20 MG TAB PO SCH (09:11)
[2019-01-03] MEDS: BACITRACIN 500 UNIT/GM OINT 28.4 GM TUBE TOPICAL SCH ×2 (09:17→22:03)
--- NOTE | 2019-01-03 15:57 | P.PN ---
Progress Note - Text Progress Note Date: 01/03/19 interval history: Patient was evaluated in his room today because he's been isolative throughout the day which is rather unusual for him for years usually walking [place] and being irritable and not redirectable. He denies any suicidal ideation. He was able to talk about that he has knee pain and doesn't know where that came from. Did not have any recent falls. Mental status examination: This is a 28-year-old childlike male who has neurocognitive disorder and mood disorder whereby he is dressed in sweats in T-shirt and socks. He presents as looking older than his stated age. Speech and language chart rapid rambling mumbling loud in nature. Attitude and behavior is irritable and withdrawn indifferent. Mood is depressed and anxious. Affect is lively and incongruent labile. Thought content within normal. Orientation is not time person place nor does have a clear understanding of why he is here. Risk factors: He denies any suicidal homicidal ideation. Perception within normal denies any auditory visual or tactile hallucinations. Thought process is concrete and circumstantial and tangential. Concentration is impaired. Recent remote memory is impaired per events is related history. Intelligence is below average based on history is vocabulary Syntex grammar and content. Judgment is poor per patient's history and history of present illness. Insight is poor and he has lacked understanding severity of illness and history of his present illness. Plan: He has been redirected several times on the unit today and we'll continue his medications and his 15 minute checks and redirection for safety. He does not participate in many of the [place] milieu events but is more disruptive.
[2019-01-03] MEDS: DIVALPROEX ER 500 MG TAB.ER.24H PO SCH (22:03)
[2019-01-03] MEDS: risperiDONE ODT 2 MG TAB PO SCH (22:03)
[2019-01-03] MEDS: LORazepam 1 MG TAB PO PRN (23:13)
[2019-01-04 06:29] LABS: Glucose,Whole Blood 91 mg/dL (75-99)
[2019-01-04] MEDS: LISINOPRIL 10 MG TAB PO SCH (08:44)
[2019-01-04] MEDS: ATORVASTATIN 20 MG TAB PO SCH (08:44)
[2019-01-04] MEDS: BACITRACIN 500 UNIT/GM OINT 28.4 GM TUBE TOPICAL SCH ×2 (08:45→20:53)
[2019-01-04] MEDS: FAMOTIDINE 20 MG TAB PO SCH (08:45)
[2019-01-04] MEDS: risperiDONE ODT 1 MG TAB PO SCH (08:45)
[2019-01-04] MEDS: metFORMIN 500 MG TAB PO SCH ×2 (08:47→16:34)
--- NOTE | 2019-01-04 10:45 | P.PN ---
Progress Note - Text Progress Note Date: 01/04/19 Interval history: This is a 28-year-old male who is again found lying in his room after breakfast and was able to sit up and communicate. He states he has high anxiety day and would like something for his anxiety. He states that his feet still hurt. He tends to get out of bed in the afternoon interact with staff and peers in the afternoon. Mental status examination: This is a 28-year-old male who was dressed casually in shorts with soft bandages over the end of his feet. His speech language is spontaneous. Attitude and behaviors cooperative. Mood is depressed and anxious with some hopelessness. Affect is flat and constricted. Orientation person place and time with knowing situation chu here. Thought content within normal risk factors denies any suicidal ideation or homicidal ideation at the current time. Perceptions within normal denies any auditory vi sual or tactile hallucinations. Thought processes goal directed. Concentration tension within normal. Recent and remote memory are within normal based on past events and related history. Intelligence is average based on history based on vocabulary Syntex grammar and content. Judgment is fair per patient's behavior and history of present illness. Insight is fair with understanding severity of his illness and history is present illness. Plan: 15 minute checks will be continued and will evaluate the need for further medications throughout the day for his psychiatric condition. Encourage him to be part of [place] milieu therapeutic environment.
--- NOTE | 2019-01-04 10:56 | P.PN ---
Progress Note - Text Progress Note Date: 01/04/19 This is a proper note for Johnathan Whatley: Interval history: Johnathan has been isolated to his room and stating that he does not feel good regarding his stomach and a headache. His vital signs are stable. He has not been on in the [place] screaming and yelling but isolating to his room. Mental status examination this is a 28-year-old male who is bizarre and casual in nature looks younger than his stated age. Speech and language are variable from slow to rapid mumbling to expressive loud to soft. Attitude and behaviors irritable withdrawn and indifferent. Mood is depressed anxious irritable and angry fearful hopelessness. Affect is blunted constricted restricted. Orientation is not time but person place and not situation. Thought content somewhat delusional at times does not show any obsessions or phobias. Risk factors denies any suicidal ideation today. Homicidal ideation. Perceptions within normal he denies today any auditory visual or tactile hallucinations. Thought process is concrete and circumstantial and tangential. Concentration attention is impaired per observation and interview with the patient. Recent remote memory are both impaired intelligence below average judgment is poor per patient's behavior and history of present illness. Insight is poor understanding severity of illness and history of his present illness. Plan: Will encourage patient to leave his room and interacts in a positive way in [place] milieu. He will remain on 15 minute checks. We'll encourage him to take his medications and to participate in [place] milieu therapeutic environment.
[2019-01-04] MEDS: LORazepam 1 MG TAB PO PRN (20:52)
[2019-01-04] MEDS: DIVALPROEX ER 500 MG TAB.ER.24H PO SCH (20:52)
[2019-01-04] MEDS: risperiDONE ODT 2 MG TAB PO SCH (20:52)
[2019-01-05] MEDS: metFORMIN 500 MG TAB PO SCH ×2 (08:06→16:59)
[2019-01-05] MEDS: FAMOTIDINE 20 MG TAB PO SCH (08:07)
[2019-01-05] MEDS: ATORVASTATIN 20 MG TAB PO SCH (08:07)
[2019-01-05] MEDS: LISINOPRIL 10 MG TAB PO SCH (08:07)
[2019-01-05] MEDS: risperiDONE ODT 1 MG TAB PO SCH (08:07)
[2019-01-05] MEDS: BACITRACIN 500 UNIT/GM OINT 28.4 GM TUBE TOPICAL SCH ×2 (08:08→20:15)
--- NOTE | 2019-01-05 10:53 | P.PN ---
Progress Note - Text Interval history: The patient is found in his room he indicates his mood is okay. He was observed up this morning as he went to breakfast. He has been compliant with medication. Social work indicates that he has [facility] set for Saturday at a [facility]. He reports no concerns regarding his psychotropic medication. Staff report that he tends to isolate in the morning and then is out more in the afternoon. He has been verbally redirectable. He required no injections for agitated behavior. Mental status exam: The patient is a disheveled obese male appearing his stated age. He is dressed in hospital gowns. He has intermittent eye contact speech as fluent and spontaneous. He indicates having no suicidal or homicidal ideation intent or plan. He is reporting no auditory or visual hallucinations or any specific delusions. He demonstrates no verbal or physical aggressiveness. He demonstrates no involuntary repetitive movements. Insight and judgment improved. Plan: The patient will continue on his current psychotropic medications. We are awaiting placement at the [facility] on Saturday. We will monitor him for safety and encourage his participation in the milieu. The patient cannot be discharged to a lesser level of care than the [facility] for safety reasons. Vital signs reviewed.
[2019-01-05] MEDS: risperiDONE ODT 2 MG TAB PO SCH (20:16)
[2019-01-05] MEDS: DIVALPROEX ER 500 MG TAB.ER.24H PO SCH (20:16)
[2019-01-05] MEDS: LORazepam 1 MG TAB PO PRN (20:17)
[2019-01-06 07:16] VITALS: TEMP 97.6
[2019-01-06] MEDS: metFORMIN 500 MG TAB PO SCH ×2 (08:19→18:03)
[2019-01-06] MEDS: ATORVASTATIN 20 MG TAB PO SCH (08:19)
[2019-01-06] MEDS: FAMOTIDINE 20 MG TAB PO SCH (08:20)
[2019-01-06] MEDS: risperiDONE ODT 1 MG TAB PO SCH (08:20)
[2019-01-06] MEDS: LISINOPRIL 10 MG TAB PO SCH (08:20)
[2019-01-06] MEDS: BACITRACIN 500 UNIT/GM OINT 28.4 GM TUBE TOPICAL SCH ×2 (09:37→20:03)
--- NOTE | 2019-01-06 10:56 | P.PN ---
Progress Note - Text Interval history: The patient is found in his room. He indicates his mood is good. He was happy to hear that he will be discharged tomorrow. He will be going to a half-way placement while awaiting a more permanent residential placement. The patient has no questions or concerns regarding his medication. Staff report no behavioral disturbances. Mental status exam: The patient's is alert he is lying in bed. He has a disheveled appearance. He reports his mood is good he denies having any suicidal or homicidal ideation intent or plan. He is reporting no auditory or visual hallucinations or any specific delusions. He demonstrates no tangential thinking loose associations or flight of ideas he does not appear hypomanic or m anic. He demonstrates no verbal or physical aggressiveness. He demonstrates no involuntary repetitive movements. Insight and judgment have improved while hospitalized. Cognitive ability is limited. Plan: The patient will continue on the same psychotropic medication. We anticipate he will be discharged tomorrow to a half-way setting. We will continue to monitor him for safety and encourage full participation in the milieu. Vital signs reviewed.
[2019-01-06] MEDS: risperiDONE ODT 2 MG TAB PO SCH (20:04)
[2019-01-06] MEDS: DIVALPROEX ER 500 MG TAB.ER.24H PO SCH (20:04)
[2019-01-06 20:10] VITALS: RESP 16
[2019-01-06 20:53] VITALS: BP 131/77; PULSE 104
[2019-01-06] MEDS: LORazepam 1 MG TAB PO PRN (20:53)
[2019-01-07] MEDS: metFORMIN 500 MG TAB PO SCH (08:46)
[2019-01-07] MEDS: risperiDONE ODT 1 MG TAB PO SCH (08:46)
[2019-01-07] MEDS: FAMOTIDINE 20 MG TAB PO SCH (08:46)
[2019-01-07] MEDS: LISINOPRIL 10 MG TAB PO SCH (08:46)
[2019-01-07] MEDS: ATORVASTATIN 20 MG TAB PO SCH (08:48)
--- NOTE | 2019-01-07 08:55 | P.DS ---
Providers Date of admission: 12/19/18 20:09 Expected date of discharge: 01/07/19 Attending physician: Billy Arora Consults: 12/19/18 20:15 Consult Physician Routine Consulting Provider: Tj Barrientos Consult Reason/Comments: medical management Do you want consulting provider notified?: Already Contacted Primary care physician: Tj Barrientos - Discharge Diagnosis(es) (1) Bipolar disorder Current Visit: Yes Status: Acute Priority: High (2) Intellectual disability Current Visit: Yes Status: Acute Priority: Medium Hospital Course: Brief summary of admission note: This patient is a 28-year-old single male who was admitted to the mental health unit on a pickup order for aggressive behavior and treatment noncompliance. It was documented that the patient had a long history of verbal and physical aggressiveness and it was felt that the patient was not appropriately caring for himself. He had not been engaged in treatment. The patient was admitted as it was felt he would continue to decompensate without the support and structure of the mental health unit. For full details please refer to my psychiatric evaluation dated 12/20/2018. Summary of hospital course: The patient was admitted to the mental health unit on a petition and clinical certificate. A second clinical certificate was completed. The patient did sign a deferral agreement. We restarted him on Depakote ER 1000 mg at bedtime and Risperdal 1 mg morning 2 mg at bedtime. During the course of his hospitalization he did stabilize. Initially was intrusive verbally aggressive and required redirection. As his treatment progressed he demonstrated no aggressive behavior the intrusive behavior decreased significantly and he was much more redirectable. He was seen by internal medicine for routine history and physical exam. Social work met with the patient to complete a psychosocial assessment and for discharge planning purposes. There was a lengthy process in getting him placement. He does have a legal guardian. Ultimately it was decided that he would be placed at a retirement until a more permanent residence is found. Mental status exam: The patient is a tall obese male appearing his stated age. He has a disheveled appearance. He is dressed in his own clothing. He reports his mood is good affect is appropriately congruent. He reports no hopelessness thinking he reports no suicidal ideation intent or plan. He reports no homicidal ideation intent or plan. He is endorsing no auditory or visual hallucinations or any specific delusions. There is no observed evidence of psychosis. He demonstrates no verbal or physical aggressiveness he demonstrates no involuntary repetitive movements. Insight and judgment chronically limited due to intellectual disability. Insight and judgment have improved during the course of the hospitalization however. He is oriented to person place and date. He demonstrates future oriented thinking. Impressions 1. Bipolar disorder, intellectual disability Plan: The patient will be discharged mental health unit today and will be residing at a retirement. Social work will arrange his outpatient mental health follow-up. He will continue on Depakote ER 1000 mg at bedtime and Risperdal 1 mg in the morning 2 mg at bedtime. There is no imminent safety risk he is appropriate for transition to outpatient care. He is instructed to return to the hospital with any acute safety concerns. Depakote level on 12/24/2018 was 88.9. Liver enzymes within normal limits. Patient Condition at Discharge: Stable Plan - Discharge Summary New Discharge Prescriptions: New Divalproex ER [Depakote ER] 1,000 mg PO HS #60 tab.er.24h metFORMIN HCL [Glucophage] 250 mg PO BID-W/MEALS #30 tab risperiDONE [RisperDAL] 2 mg PO HS #30 tab Continue Atorvastatin [Lipitor] 20 mg PO DAILY #30 tab Famotidine [Pepcid] 20 mg PO DAILY #30 tab risperiDONE [RisperDAL] 1 mg PO DAILY #30 tab Lisinopril [Zestril] 10 mg PO DAILY #30 tab Discontinued risperiDONE [RisperDAL] 2 mg PO HS Pramipexole [Mirapex] 1 mg PO HS FLUoxetine HCL [PROzac] 40 mg PO DAILY No Action Divalproex [Depakote] 250 mg PO TID Discharge Medication List Divalproex [Depakote] 250 mg PO TID 12/19/18 [History] Atorvastatin [Lipitor] 20 mg PO DAILY #30 tab 01/07/19 [Rx] Divalproex ER [Depakote ER] 1,000 mg PO HS #60 tab.er.24h 01/07/19 [Rx] Famotidine [Pepcid] 20 mg PO DAILY #30 tab 01/07/19 [Rx] Lisinopril [Zestril] 10 mg PO DAILY #30 tab 01/07/19 [Rx] metFORMIN HCL [Glucophage] 250 mg PO BID-W/MEALS #30 tab 01/07/19 [Rx] risperiDONE [RisperDAL] 1 mg PO DAILY #30 tab 01/07/19 [Rx] risperiDONE [RisperDAL] 2 mg PO HS #30 tab 01/07/19 [Rx] Follow up Appointment(s)/Referral(s): [facility] [Outside] - 01/07/19 10:00 am (01/07/19 @ 10:00am w/ Francis Barrera 01/12/19 @ 10:30am w/ Dr. Tj Taylor for med review) Tj Barrientos MD [Primary Care Provider] - 1-2 days Patient Instructions/Handouts: Schizoaffective Disorder (DC) Activity/Diet/Wound Care/Special Instructions: Activity and Diet as tolerated. Avoid the use of street drugs and alcohol. Take all medications as prescribed, when you are in need of refills contact your medical doctor or psychiatrist. Please go to all scheduled outpatient appointments for aftercare treatment. If symptoms return or worsen you can call the crisis line @ and/or return to the nearest emergency room for evaluation.
[2019-01-07] MEDS: BACITRACIN 500 UNIT/GM OINT 28.4 GM TUBE TOPICAL SCH (09:00)
== END 2019-01-07 09:59 | disposition home or self-care (01) | DRG 885 ==
LOC: EC 17:52 → 3MHU 20:09
PROVIDERS: ADMIT Psychiatry & Neurology Psychiatry; ATTEND Psychiatry & Neurology Psychiatry
DX: F31.9 Bipolar disorder, unspecified (principal); E66.01 Morbid (severe) obesity due to excess calories; F79 Unspecified intellectual disabilities; E11.9 Type 2 diabetes mellitus without complications; F41.9 Anxiety disorder, unspecified; Z68.38 Body mass index [BMI] 38.0-38.9, adult; M25.569 Pain in unspecified knee; I10 Essential (primary) hypertension; Z79.899 Other long term (current) drug therapy; Z91.19 Patient's noncompliance with other medical treatment and regimen; Z59.0 Homelessness; Z91.5 Personal history of self-harm
CPT/HCPCS: 80164; 80306; 81003; 82075; 84450; 84460; 99285